=== PATIENT | female | born 1980 | race African-American/Black ===

== ENCOUNTER 2017-11-21 17:54 | Inpatient (IN) | payer MEDICAID, OTHER ==
[~2017-11-21] VITALS: Ht 162.6 cm; Wt 53.5 kg
[2017-11-21] MEDS ORDERED: HEPARIN SQ (18:33)
[2017-11-21] MEDS ORDERED: DOLU1TAB PO (18:33)
[2017-11-21] MEDS ORDERED: NOVOLOGP2 SQ (18:33)
[2017-11-21] MEDS ORDERED: FAMO20TA2 PO (18:33)
[2017-11-21] MEDS ORDERED: TYLE325T PO (18:33)
[2017-11-21] MEDS ORDERED: LANTUS2P SQ (18:33)
[2017-11-21] MEDS ORDERED: ESCI10TA PO (18:33)
[2017-11-21] MEDS ORDERED: EMTR1TAB4 PO (18:33)
[2017-11-21 18:42] VITALS: BP 116/68; PULSE 87; RESP 16; TEMP 98.2; O2SAT 99
--- NOTE | 2017-11-21 22:50 | PD ---
HPI Chief Complaint: Psychiatric Symptoms Time Seen by Provider: 20:58 Travel History International Travel<30 days: No Contact w/Intl Traveler<30days: No Traveled to known affect area: No History of Present Illness HPI Patient is a 37-year-old female presenting to the emergency department for psychiatric evaluation under a Menjivar act. Patient was apparently transferred from [facility]. Apparently patient has auditory hallucinations that command her to commit suicide. She has a history of depression, asthma, type 1 diabetes, HIV. She reports noncompliance with HIV medications, she has not taken them in 4 months. Patient is not forthcoming with any further information at this time. She was resting in bed with a blanket over her head. PFSH Past Medical History Asthma: Yes Autoimmune Disease: Yes (HIV) Depression: Yes Diabetes: Yes Patient Takes Glucophage: No Immune Disorder: Yes Tetanus Vaccination: < 5 Years ?: Not : 2 Para: 2 Dilation and Curettage (D&C): Yes Social History Alcohol Use: No Tobacco Use: Yes Substance Use: No Allergies-Medications (Allergen,Severity, Reaction): Coded Allergies: lorazepam (Verified Allergy, Severe, Hives, 11/21/17) metoclopramide (Verified Allergy, Severe, 11/21/17) ondansetron (Verified Allergy, Severe, Hives, 11/21/17) ITCH, WELTZ Reported Meds & Prescriptions Reported Meds & Active Scripts Active Reported Lantus Inj (Insulin Glargine) 1,000 Unit/10 Ml Vial 15 Units SQ BID Novolog Inj (Insulin Aspart) 1,000 Unit/10 Ml Vial 10 Units SQ TID [Heparin ] 5,000 Units SQ TID Famotidine 20 Mg Tab 20 Mg PO BID Escitalopram (Escitalopram Oxalate) 10 Mg Tab 10 Mg PO DAILY Descovy (Emtricitabine-Tenofovir Alafenamide) 200-25 mg Tab 1 Tab PO DAILY Tivicay (Dolutegravir Sodium) 50 Mg Tab 50 Mg PO DAILY Tylenol (Acetaminophen) 325 Mg Tab 325 Mg PO Q6H PRN Review of Systems Except as stated in HPI: all other systems reviewed are Neg Psychiatric: Positive: Suicidal Ideations, Disorder of Thought, Mood Disorder Physical Exam Narrative GENERAL: Thin, well-developed -Citizen Of [place] female. SKIN: Warm and dry. HEAD: Atraumatic. Normocephalic. EYES: Pupils equal and round. No scleral icterus. No injection or drainage. ENT: No nasal bleeding or discharge. Mucous membranes pink and moist. NECK: Trachea midline. No JVD. CARDIOVASCULAR: Regular rate and rhythm. RESPIRATORY: No accessory muscle use. Clear to auscultation. Breath sounds equal bilaterally. GASTROINTESTINAL: Abdomen soft, non-tender, nondistended. Hepatic and splenic margins not palpable. MUSCULOSKELETAL: Extremities without clubbing, cyanosis, or edema. No obvious deformities. NEUROLOGICAL: Drowsy but arousable. No obvious cranial nerve deficits. Motor grossly within normal limits. Five out of 5 muscle strength in the arms and legs. Normal speech. PSYCHIATRIC: Depressed mood and flat affect Data Data Last Documented VS Vital Signs Date Time Temp Pulse Resp B/P (MAP) Pulse Ox O2 Delivery O2 Flow Rate FiO2 11/21/17 18:42 98.2 87 16 116/68 (84) 99 Orders Orders Complete Blood Count With Diff (11/21/17 22:00) Comprehensive Metabolic Panel (11/21/17 22:00) Thyroid Stimulating Hormone (11/21/17 22:00) Psych Screen (11/21/17 22:00) Blood Glucose (11/21/17 22:03) Labs Laboratory Tests Test 11/21/17 23:25 White Blood Count 2.7 TH/MM3 Red Blood Count 3.39 MIL/MM3 Hemoglobin 9.8 GM/DL Hematocrit 30.6 % Mean Corpuscular Volume 90.4 FL Mean Corpuscular Hemoglobin 29.0 PG Mean Corpuscular Hemoglobin Concent 32.1 % Red Cell Distribution Width 16.1 % Platelet Count 239 TH/MM3 Mean Platelet Volume 9.5 FL Neutrophils (%) (Auto) 64.2 % Lymphocytes (%) (Auto) 19.1 % Monocytes (%) (Auto) 12.8 % Eosinophils (%) (Auto) 3.3 % Basophils (%) (Auto) 0.6 % Neutrophils # (Auto) 1.7 TH/MM3 Lymphocytes # (Auto) 0.5 TH/MM3 Monocytes # (Auto) 0.3 TH/MM3 Eosinophils # (Auto) 0.1 TH/MM3 Basophils # (Auto) 0.0 TH/MM3 CBC Comment AUTO DIFF Blood Urea Nitrogen 27 MG/DL Creatinine 0.91 MG/DL Random Glucose 410 MG/DL Total Protein 8.2 GM/DL Albumin 2.8 GM/DL Calcium Level 8.3 MG/DL Alkaline Phosphatase 124 U/L Aspartate Amino Transf (AST/SGOT) 29 U/L Alanine Aminotransferase (ALT/SGPT) 41 U/L Total Bilirubin 0.1 MG/DL Sodium Level 136 MEQ/L Potassium Level 4.6 MEQ/L Chloride Level 105 MEQ/L Carbon Dioxide Level 24.6 MEQ/L Anion Gap 6 MEQ/L Estimat Glomerular Filtration Rate 84 ML/MIN Thyroid Stimulating Hormone 3rd Gen 2.340 uIU/ML MDM Medical Decision Making Medical Screen Exam Complete: Yes Emergency Medical Condition: Yes Medical Record Reviewed: Yes Interpretation(s) Laboratory Tests Test 11/21/17 23:25 White Blood Count 2.7 TH/MM3 Red Blood Count 3.39 MIL/MM3 Hemoglobin 9.8 GM/DL Hematocrit 30.6 % Mean Corpuscular Volume 90.4 FL Mean Corpuscular Hemoglobin 29.0 PG Mean Corpuscular Hemoglobin Concent 32.1 % Red Cell Distribution Width 16.1 % Platelet Count 239 TH/MM3 Mean Platelet Volume 9.5 FL Neutrophils (%) (Auto) 64.2 % Lymphocytes (%) (Auto) 19.1 % Monocytes (%) (Auto) 12.8 % Eosinophils (%) (Auto) 3.3 % Basophils (%) (Auto) 0.6 % Neutrophils # (Auto) 1.7 TH/MM3 Lymphocytes # (Auto) 0.5 TH/MM3 Monocytes # (Auto) 0.3 TH/MM3 Eosinophils # (Auto) 0.1 TH/MM3 Basophils # (Auto) 0.0 TH/MM3 CBC Comment AUTO DIFF Blood Urea Nitrogen 27 MG/DL Creatinine 0.91 MG/DL Random Glucose 410 MG/DL Total Protein 8.2 GM/DL Albumin 2.8 GM/DL Calcium Level 8.3 MG/DL Alkaline Phosphatase 124 U/L Aspartate Amino Transf (AST/SGOT) 29 U/L Alanine Aminotransferase (ALT/SGPT) 41 U/L Total Bilirubin 0.1 MG/DL Sodium Level 136 MEQ/L Potassium Level 4.6 MEQ/L Chloride Level 105 MEQ/L Carbon Dioxide Level 24.6 MEQ/L Anion Gap 6 MEQ/L Estimat Glomerular Filtration Rate 84 ML/MIN Thyroid Stimulating Hormone 3rd Gen 2.340 uIU/ML Vital Signs Date Time Temp Pulse Resp B/P (MAP) Pulse Ox O2 Delivery O2 Flow Rate FiO2 11/21/17 18:42 98.2 87 16 116/68 (75) 99 Differential Diagnosis Mood disorder versus substance abuse versus suicidal ideations versus psychosis versus other Narrative Course Patient is a 37-year-old female transferred from [facility] to [place] under a Menjivar act for psychiatric evaluation. Apparently patient had been inpatient there for a month. The paperwork she has with her appears to be discharge paperwork. Patient's vital signs are stable, will obtain basic labs. Psych screen is ordered. Patient is resting comfortably at this time. Labs reviewed, CBC with a white blood cell count of 2.7, chemistry with elevated BUN. Glucose is 410. Called [facility] to speak with RN and was notified that patient's mother told her that this is not her baseline that she is normally happy. We have no previous medical history for this patient, she does appear altered/drowsy. Uncertain of her baseline, for this reason patient was moved to a medical bed for more thorough workup given her medical history and noncompliance with HIV medications as well. Discussed with Dr. Blanco. Albertina Xie Nov 21, 2017 22:50
[2017-11-21 23:36] LABS: AUTOMATED NEUTROPHIL # 1.7 TH/MM3 (1.8-7.7); BASOPHIL % 0.6 % (0.0-2.0); EOSINOPHIL # 0.1 TH/MM3 (0-0.4); EOSINOPHIL % 3.3 % (0.0-4.0); HEMATOCRIT 30.6 % (35.0-46.0); HEMOGLOBIN 9.8 GM/DL (11.6-15.3); LYMPH % 19.1 % (9.0-44.0); LYMPHOCYTE # 0.5 TH/MM3 (1.0-4.8); MEAN CELL VOLUME 90.4 FL (80.0-100.0); MEAN CORPUSCULAR HGB CONC 32.1 % (32.0-36.0); MEAN PLATELET VOLUME 9.5 FL (7.0-11.0); MONO % 12.8 % (0.0-8.0); MONOCYTE # 0.3 TH/MM3 (0-0.9); NEUT % 64.2 % (16.0-70.0); PLATELET COUNT 239 TH/MM3 (150-450); RED BLOOD COUNT 3.39 MIL/MM3 (4.00-5.30); RED CELL DISTRIBUTION WIDTH 16.1 % (11.6-17.2); WHITE BLOOD COUNT 2.7 TH/MM3 (4.0-11.0)
[2017-11-22 00:05] LABS: ALBUMIN 2.8 GM/DL (3.4-5.0); ALKALINE PHOSPHATASE 124 U/L (45-117); ALT (GPT) 41 U/L (10-53); AST (GOT) 29 U/L (15-37); BICARBONATE 24.6 MEQ/L (21.0-32.0); BLOOD UREA NITROGEN 27 MG/DL (7-18); CALCIUM 8.3 MG/DL (8.5-10.1); CHLORIDE 105 MEQ/L (98-107); CREATININE 0.91 MG/DL (0.50-1.00); GLOMERULAR FILTRATION RATE 84 ML/MIN (>89); GLUCOSE,RANDOM 410 MG/DL (74-106); SODIUM (NA) 136 MEQ/L (136-145); TOTAL BILIRUBIN ADULT 0.1 MG/DL (0.2-1.0); TOTAL PROTEIN 8.2 GM/DL (6.4-8.2)
[2017-11-22 01:30] VITALS: BP 113/69; PULSE 90; RESP 18; O2SAT 100
[2017-11-22] MEDS ORDERED: diphenhydrAMINE HCL 50 MG/ML VIAL IV PUSH ONE (01:30)
[2017-11-22] MEDS ORDERED: INSULIN HUMAN REGULAR 1,000 UNITS/10 ML VIAL IV PUSH ONE (01:30)
[2017-11-22] MEDS ORDERED: SODIUM CHLOR 0.9% 1000 ML INJ 1,000 ML IV ONE (01:30)
[2017-11-22 06:49] VITALS: BP 124/73; PULSE 100; RESP 16; O2SAT 98
[2017-11-22] MEDS ORDERED: LIDOCAINE VISCOUS 2% SOLN 15 ML UDC SWISH-SWAL PRN (09:30)
[2017-11-22] MEDS ORDERED: FAMOTIDINE 20 MG TAB PO ONE (09:30)
[2017-11-22] MEDS ORDERED: ALUMINUM/MAGNESIUM/SIMETH 30 ML CUP PO ONE (09:30)
[2017-11-22] MEDS ORDERED: LORazepam 2 MG/ML VIAL IM PRN ×2 (11:15)
[2017-11-22] MEDS ORDERED: ACETAMINOPHEN 325 MG TAB PO PRN ×2 (11:15→15:30)
[2017-11-22] MEDS ORDERED: MAGNESIUM HYDROXIDE SUSP 30 ML CUP PO PRN (11:15)
[2017-11-22] MEDS ORDERED: LORazepam 1 MG TAB PO PRN (11:15)
[2017-11-22] MEDS ORDERED: LORazepam 0.5 MG TAB PO PRN (11:15)
--- NOTE | 2017-11-22 11:49 | HHI.HP ---
Provisional Diagnosis Admission Date [place] I. Major depressive disorder, recurrent, with psychotic features vs schizoaffective disorder vs schizophrenia, r/o substance-induced psychosis, r/o medical induce psychosis [place] II. Deferred [place] III. HIV, diabetes Certification of Person's Competence To Provide Express and Informed Consent I have personally examined Ruth Wylie , a [facility] on, Nov 22, 2017 11:19. Express and informed consent means consent voluntarily given in writing, by a competent person, after sufficient explanation and disclosure of the subject matter involved to enable the person to make a knowing and willful decision without any element of force, fraud, deceit, duress, or other form of constraint or coercion. This person is 18 years of age or older, is not now known to be incompetent to consent to treatment with a guardian advocate, and does not have a health care surrogate or proxy currently making medical treatment decisions. I have found this person to be one of the following: [x] Competent to provide express and informed consent, as defined above, for voluntary admission to this facility and is competent to provide express and informed consent for treatment. He/she has the consistent capacity to make well reasoned, willful, and knowing decisions concerning his or her medical or mental health treatment. The person fully and consistently understands the purpose of the admission for examination/placement and is fully capable of personally exercising all rights assured [place] Incompetent to provide express and informed consent to voluntary admission, and this is incompetent to provide express and informed consent to treatment. The person must be transferred to involuntary status and a petition for a guardian advocate filed with the Circuit Court. [] Refusing to provide express and informed consent to voluntary admission but is competent to provide express and informed consent for treatment. The person must be discharged or transferred to involuntary status. Form shall be completed within 24 hours of a person's arrival at the receiving facility and filed in the clinical record of each person: 1. Admitted on a voluntary basis 2. Permitted to provide express and informed consent to his/her own treatment 3. Allowed to transfer from involuntary to voluntary status 4. Prior to permitting a person to consent to his or her own treatment after having been previously found incompetent to consent to treatment. History of Present Illness Capacity: Has Capacity HPI The patient is a 37-year-old woman, domicile in [place] with her mother, mother of 2 kids, unemployed, supported by [facility], with unclear psychiatric history, she says that she has been diagnosed with psychosis in the past, no previous psychiatric hospitalizations, 2 previous suicide attempts, self cutting behavior, she has been in Sero[place] in the past, denies the use of illegal drugs and alcohol, medical history of HIV and diabetes, who presents to the emergency department for psychiatric evaluation under a Menjivar act. Patient was apparently transferred from [facility]. Apparently patient has auditory hallucinations that command her to commit suicide. Chart was reviewed. Case discussed with ER staff. On psychiatric evaluation the patient is poorly cooperative, very tearful, with marked psychomotor retardation, with poor eye contact, staring to the floor. Her speech is hesitant, answers selectively to my questions, she does report that she has been very depressed, that she has lost the reason to live and she has been hearing voices telling her to kill herself. She says that she has been having difficulties coping with her HIV and diabetes to the point that she has stopped taking her medications and she doesn't care anymore. The patient is fully oriented 3, she doesn't have any fluctuation of consciousness, no attention deficit. Even though she has fragmented thought processes, she is logical coherent and relevant, no agitation, no aggressive behavior, no loosening of associations, no tangentiality present. She denies the use of illegal drugs and alcohol. Review of Systems Constitutional: DENIES: Diaphoretic episodes, Fatigue, Fever, Weight gain, Weight loss, Chills, Dizziness, Change in appetite, Night Sweats Endocrine: DENIES: Abnorml menstrual pattern, Heat/cold intolerance, Polydipsia , Polyuria, Polyphagia Eyes: DENIES: Blurred vision, Diplopia, Eye inflammation, Eye pain, Vision loss , Photosensitivity, Double Vision Ears, nose, mouth, throat: DENIES: Tinnitus, Hearing loss, Vertigo, Nasal discharge, Oral lesions, Throat pain, Hoarseness, Ear Pain, Running Nose, Epistaxis, Sinus Pain, Toothache, Odynophagia Respiratory: DENIES: Apneas, Cough, Snoring, Wheezing, Hemoptysis, Sputum production, Shortness of breath Cardiovascular: DENIES: Chest pain, Palpitations, Syncope, Dyspnea on Exertion , PND, Lower Extremity Edema, Orthopnea, Claudication Gastrointestinal: DENIES: Abdominal pain, Black stools, Bloody stools, Constipation, Diarrhea, Nausea, Vomiting, Difficulty Swallowing, Anorexia Genitourinary: DENIES: Abnormal vaginal bleeding, Dysmenorrhea, Dyspareunia, Sexual dysfunction, Urinary frequency, Urinary incontinence, Urgency, Hematuria , Dysuria, Nocturia, Vaginal discharge Musculoskeletal: DENIES: Joint pain, Muscle aches, Stiffness, Joint Swelling, Back pain, Neck pain Integumentary: DENIES: Abnormal pigmentation, Pruritus, Rash, Nail changes, Breast masses, Breast skin changes, Nipple discharge Hematologic/lymphatic: DENIES: Bruising, Lymphadenopathy Immunologic/allergic: DENIES: Eczema, Urticaria Neurologic: DENIES: Abnormal gait, Headache, Localized weakness, Paresthesias, Seizures, Speech Problems, Tremor, Poor Balance Psychiatric: COMPLAINS OF: Depression, Hallucinations, Suicidal Ideation Past Psych History Violence risk - self (6 mos) Elevated Substance Abuse History Drugs/Alcohol past 12 months Patient denies the use of illegal drugs and alcohol Past Family Social History Coded Allergies: lorazepam (Verified Allergy, Severe, Hives, 11/21/17) metoclopramide (Verified Allergy, Severe, 11/21/17) ondansetron (Verified Allergy, Severe, Hives, 11/21/17) ANTHONY SEGOVIA Reported Medications Insulin Glargine Inj (Lantus Inj) 1,000 Unit/10 Ml Vial, 15 UNITS SQ BID for Blood Sugar Management, VIAL 0 Refills 11/21/17 Insulin Aspart Inj (Novolog Inj) 1,000 Unit/10 Ml Vial, 10 UNITS SQ TID for Blood Sugar Management, #10 ML 0 Refills 11/21/17 [Heparin ] No Conflict Check, 5000 UNITS SQ TID 11/21/17 Famotidine (Famotidine) 20 Mg Tab, 20 MG PO BID, #60 TAB 0 Refills 11/21/17 Escitalopram (Escitalopram) 10 Mg Tab, 10 MG PO DAILY, #30 TAB 0 Refills 11/21/17 Emtricitabine-Tenofovir Alafenamide (Descovy) 200-25 mg Tab, 1 TAB PO DAILY for Mgmt Viral Infection, #30 TAB 0 Refills 11/21/17 Dolutegravir (Tivicay) 50 Mg Tab, 50 MG PO DAILY for Mgmt Viral Infection, #30 TAB 0 Refills 11/21/17 Acetaminophen (Tylenol) 325 Mg Tab, 325 MG PO Q6H Y for PAIN SCALE 5 TO 10, TAB 0 Refills 11/21/17 Current Medications Medications (Trade) Dose Ordered Sig/Millie Route Start Time Stop Time Status Last Admin (Xylocaine 2% Viscous) 15 ml Q4H PRN SWISH-SWAL 11/22/17 09:30 Family Psych History She denies family psychiatric history Social History She was born and raised in [place], she lives in [place] with her mother, she is single, she has 2 kids under the care of their father, unemployed , supported by [employer], highest level of education is 11th grade Patient's Strengths (min. 2) Verbal communication Physical Exam No EPS, no tremors, marked psychomotor retardation. Vital Signs Vital Signs Date Time Temp Pulse Resp B/P (MAP) Pulse Ox O2 Delivery O2 Flow Rate FiO2 11/22/17 06:49 100 16 124/73 (90) 98 Room Air 11/21/17 18:42 98.2 I/O 11/22/17 11/22/17 11/23/17 08:00 16:00 00:00 Intake Total 1000 ml Balance 1000 ml Lab Results Test 11/21/17 23:25 White Blood Count 2.7 TH/MM3 Red Blood Count 3.39 MIL/MM3 Hemoglobin 9.8 GM/DL Hematocrit 30.6 % Mean Corpuscular Volume 90.4 FL Mean Corpuscular Hemoglobin 29.0 PG Mean Corpuscular Hemoglobin Concent 32.1 % Red Cell Distribution Width 16.1 % Platelet Count 239 TH/MM3 Mean Platelet Volume 9.5 FL Neutrophils (%) (Auto) 64.2 % Lymphocytes (%) (Auto) 19.1 % Monocytes (%) (Auto) 12.8 % Eosinophils (%) (Auto) 3.3 % Basophils (%) (Auto) 0.6 % Neutrophils # (Auto) 1.7 TH/MM3 Lymphocytes # (Auto) 0.5 TH/MM3 Monocytes # (Auto) 0.3 TH/MM3 Eosinophils # (Auto) 0.1 TH/MM3 Basophils # (Auto) 0.0 TH/MM3 CBC Comment AUTO DIFF Differential Comment AUTO DIFF CONFIRMED Platelet Estimate NORMAL Platelet Morphology Comment NORMAL Blood Urea Nitrogen 27 MG/DL Creatinine 0.91 MG/DL Random Glucose 410 MG/DL Total Protein 8.2 GM/DL Albumin 2.8 GM/DL Calcium Level 8.3 MG/DL Alkaline Phosphatase 124 U/L Aspartate Amino Transf (AST/SGOT) 29 U/L Alanine Aminotransferase (ALT/SGPT) 41 U/L Total Bilirubin 0.1 MG/DL Sodium Level 136 MEQ/L Potassium Level 4.6 MEQ/L Chloride Level 105 MEQ/L Carbon Dioxide Level 24.6 MEQ/L Anion Gap 6 MEQ/L Estimat Glomerular Filtration Rate 84 ML/MIN Thyroid Stimulating Hormone 3rd Gen 2.340 uIU/ML Mental Status Examination Appearance: Dirty, Disheveled Consciousness: Alert Orientation: x4 Motor Activity: Normal gait Speech: Unremarkable Language: Adequate Fund of Knowledge: Adequate Attention and Concentration: Adequate Memory: Unremarkable Mood: Sad Affect: Sad Thought Process & Associations: Intact Thought Content: Appropriate Hallucination Type: Auditory Delusion Type: None Suicidal Ideation: Yes Suicidal Plan: Yes Suicidal Intention: No Homicidal Ideation: No Homicidal Plan: No Homicidal Intention: No Insight: Poor Judgment: Poor Assessment & Plan Problem List: (1) Major depressive disorder, single episode ICD Codes: F32.9 - Major depressive disorder, single episode, unspecified Assessment & Plan: On somatic evaluation today the patient presents with severe symptomatology of depression, she reports anhedonia, lack of motivation, guiltiness, hopelessness, helplessness, she also presents neurovegetative symptoms of depression, such as psychomotor retardation, delay speech, poor appetite, insomnia and lack of energy. He has been hearing voices telling her to kill herself. At this moment the patient represents an increase danger of harm to self and she needs psychiatric hospitalization for stabilization. I will start Zoloft 25 mg daily for depression, Seroquel 25 mg twice a day for psychosis. Patient agrees with voluntary admission. Will consult hospitalist for management of diabetes and HIV. Brief supportive psychotherapy, motivation and psychoeducation provided. Patient will be admitted in the med psych floor. Assessment & Plan Estimated LOS: days Problem Qualifiers (1) Major depressive disorder, single episode: Nick Murray MD Nov 22, 2017 11:49
[2017-11-22] MEDS: QUEtiapine FUMARATE 25 MG TAB PO SCH (12:00)
[2017-11-22 13:36] VITALS: BP 105/58; PULSE 103; RESP 20; O2SAT 96
[2017-11-22] MEDS ORDERED: GLUCAGON 1 MG/ML VIAL OTHER PRN (13:45)
[2017-11-22] MEDS ORDERED: DEXTROSE 50% IN WATER 50 ML VIAL(D50) IV PUSH PRN (13:45)
[2017-11-22] MEDS: INSULIN ASPART SUPPLEMENTAL SCALE SQ SCH ×3 (14:15→21:21)
--- NOTE | 2017-11-22 14:59 | PD.CONS ---
Review of Systems Except as stated in HPI: all other systems reviewed are Neg Past Family Social History Allergies: Coded Allergies: lorazepam (Verified Allergy, Severe, Hives, 11/21/17) metoclopramide (Verified Allergy, Severe, 11/21/17) ondansetron (Verified Allergy, Severe, Hives, 11/21/17) ITCH, ANTHONY Past Medical History asthma hiv dm cervical cancer - s/p cone biopsy / resection- 2014 Past Surgical History cone biopsy d+C Family History mother - dm grandfather - dm cousins aunts- dm dad- dm Social History no smoking no etoh abuse no drugs Physical Exam Vital Signs Vital Signs Date Time Temp Pulse Resp B/P (MAP) Pulse Ox O2 Delivery O2 Flow Rate FiO2 11/22/17 13:36 103 20 105/58 (74) 96 Room Air 11/22/17 06:49 100 16 124/73 (90) 98 Room Air 11/22/17 01:30 90 18 113/69 (84) 100 11/21/17 18:42 98.2 87 16 116/68 (84) 99 Physical Exam GENERAL: This is a well-nourished, well-developed patient, in no apparent distress. SKIN: dry scaly skin with HIV related skin discolorations HEAD: Atraumatic. Normocephalic. No temporal or scalp tenderness. EYES:t. No scleral icterus. No injection or drainage. ENT: Nose without bleeding, purulent drainage or septal hematoma. Airway patent. NECK: Trachea midline. No JVD. Supple, nontender, no meningeal signs. CARDIOVASCULAR: Regular rate and rhythm without murmurs, gallops, or rubs. RESPIRATORY: Clear to auscultation. Breath sounds equal bilaterally. No wheezes , rales, or rhonchi. GASTROINTESTINAL: Abdomen soft, non-tender, nondistended. No guarding MUSCULOSKELETAL: no calf asymmetry or edema, non tender NEUROLOGICAL: Awake and alert. Motor and sensory grossly within normal limits. Normal speech. Laboratory Laboratory Tests Test 11/21/17 23:25 White Blood Count 2.7 Red Blood Count 3.39 Hemoglobin 9.8 Hematocrit 30.6 Mean Corpuscular Volume 90.4 Mean Corpuscular Hemoglobin 29.0 Mean Corpuscular Hemoglobin Concent 32.1 Red Cell Distribution Width 16.1 Platelet Count 239 Mean Platelet Volume 9.5 Neutrophils (%) (Auto) 64.2 Lymphocytes (%) (Auto) 19.1 Monocytes (%) (Auto) 12.8 Eosinophils (%) (Auto) 3.3 Basophils (%) (Auto) 0.6 Neutrophils # (Auto) 1.7 Lymphocytes # (Auto) 0.5 Monocytes # (Auto) 0.3 Eosinophils # (Auto) 0.1 Basophils # (Auto) 0.0 CBC Comment AUTO DIFF Differential Comment AUTO DIFF CONFIRMED Platelet Estimate NORMAL Platelet Morphology Comment NORMAL Blood Urea Nitrogen 27 Creatinine 0.91 Random Glucose 410 Total Protein 8.2 Albumin 2.8 Calcium Level 8.3 Alkaline Phosphatase 124 Aspartate Amino Transf (AST/SGOT) 29 Alanine Aminotransferase (ALT/SGPT) 41 Total Bilirubin 0.1 Sodium Level 136 Potassium Level 4.6 Chloride Level 105 Carbon Dioxide Level 24.6 Anion Gap 6 Estimat Glomerular Filtration Rate 84 Thyroid Stimulating Hormone 3rd Gen 2.340 Result Diagram: 11/21/175 11/21/172324 Assessment and Plan Assessment and Plan HPI: (for some reason, unable to have a section for HIPI on this note in preceding section tabs). 37 yo female, transferred to our facility from [facility] in [place], under inpatient psychiatry service for suicidal ideation/ attempt. Reported she was at [facility] for 1 week initially was managed there for DKA first 2 days in ICU according to luis danielt. Denies any infection or treatment of it. Denies being on antibiotics reports she has not been taking anti retrovrial meds for her HIV at home review of records from [facility] reveals she was being given HAART meds there during hospitalization on ROS, pt denies any fever /nausea/ vomiting/ diarrhea/ black or red stool/ urinary symptoms/ blood in urine Denies any chest pains/ dizziness/ syncopal episodes/ palpitations Was not on any bolanos or central lines while at [facility] Impression: recent admission to [facility] for 1 week, and transferred here to psychiatry for suicidal ideation recent DKA - stated due to meds non compliance HIV on meds- but does not know names- stopped them for past few months - records reveal she was receiving them during her hospitalization in [facility] hypergylcemia Plan: resume her discharge dose of insulin regimen from [facility] I have called [facility] system myself and left message with hospitalist group call center to speak to Dr Srinivas Tong/ discharging physician - so far, did not receive a phone call back from him. would need to check with Dr Tong as to why pt was on HAART meds there if she is non compliant and have not taken it for few months for now, we will hold HAART meds will need to decide on this after discussing with him fingersticks q4hrs stat insluin 25units novolog coverage given x2 in [facility] as her BS is >500. She was also eating. will monitor blood counts no baseline labs here- paperwork from [facility] did not include any labs/ hp or dc summary no evidence of bleeding/ infection- likely baseline labs- will monitor DVT prophyalxis with ambulation Hugo Milan MD Nov 22, 2017 14:59
[2017-11-22] MEDS ORDERED: RESP: ALBUTEROL 2.5 MG/IPRATROPIUM 0.5 MG NEB (PRN) NEB (15:15)
[2017-11-22] MEDS ORDERED: INSULIN ASPART 1,000 UNITS/10 ML VIAL SQ ONE (16:15)
[2017-11-22] MEDS: ALUMINUM/MAGNESIUM/SIMETH 30 ML CUP PO PRN (17:50)
[2017-11-22 18:00] VITALS: BP 111/76; PULSE 123; RESP 17; TEMP 98; O2SAT 95
[2017-11-22] MEDS: INSULIN ASPART 1,000 UNITS/10 ML VIAL SQ SCH (18:18)
[2017-11-22] MEDS: INSULIN DETEMIR 100 UNITS/ML VIAL SQ SCH (21:00)
[2017-11-22] MEDS: FAMOTIDINE 20 MG TAB PO SCH (21:20)
[2017-11-22] MEDS: HEPARIN SODIUM - SQ 10,000 UNITS/ML VIAL SQ SCH (21:21)
[2017-11-22] MEDS: diphenhydrAMINE HCL 25 MG CAP PO PRN (21:27)
[2017-11-23] MEDS: INSULIN ASPART SUPPLEMENTAL SCALE SQ SCH ×6 (02:00→21:19)
[2017-11-23] MEDS: HEPARIN SODIUM - SQ 10,000 UNITS/ML VIAL SQ SCH ×3 (05:20→21:18)
[2017-11-23 06:00] VITALS: BP 141/74; PULSE 100; RESP 18; TEMP 98.1; O2SAT 98
[2017-11-23] MEDS: ALUMINUM/MAGNESIUM/SIMETH 30 ML CUP PO PRN ×2 (06:12→15:48)
[2017-11-23 08:33] LABS: BICARBONATE 22.1 MEQ/L (21.0-32.0); BLOOD UREA NITROGEN 32 MG/DL (7-18); CALCIUM 9.2 MG/DL (8.5-10.1); CHLORIDE 99 MEQ/L (98-107); CHOLESTEROL 147 MG/DL (120-200); CHOLESTEROL/ HDL RATIO 1.48 RATIO; CREATININE 1.14 MG/DL (0.50-1.00); GLOMERULAR FILTRATION RATE 65 ML/MIN (>89); GLUCOSE,RANDOM 362 MG/DL (74-106); LDL CHOLESTEROL 38 MG/DL (0-99); SODIUM (NA) 131 MEQ/L (136-145); TRIGLYCERIDES 48 MG/DL (42-150)
[2017-11-23] MEDS: NICOTINE 21 MG/24 HR PATCH T-DERMAL SCH (09:00)
[2017-11-23] MEDS ORDERED: SERTRALINE HCL 50 MG TAB PO SCH (09:00)
[2017-11-23] MEDS: REMOVE OLD PATCH T-DERMAL SCH (09:00)
[2017-11-23] MEDS: QUEtiapine FUMARATE 25 MG TAB PO SCH ×2 (09:10→12:00)
[2017-11-23] MEDS: diphenhydrAMINE HCL 25 MG CAP PO PRN (09:10)
[2017-11-23] MEDS: ESCITALOPRAM OXALATE 10 MG TAB PO SCH (09:10)
[2017-11-23] MEDS: FAMOTIDINE 20 MG TAB PO SCH ×2 (09:10→21:00)
[2017-11-23] MEDS: INSULIN DETEMIR 100 UNITS/ML VIAL SQ SCH ×2 (09:12→21:00)
[2017-11-23] MEDS: INSULIN ASPART 1,000 UNITS/10 ML VIAL SQ SCH ×3 (09:12→17:54)
[2017-11-23 10:53] LABS: HEMOGLOBIN A1C 12.4 % (4.3-6.0)
[2017-11-23] MEDS ORDERED: SODIUM CHLOR 0.9% 1000 ML INJ 1,000 ML IV ONE (11:00)
[2017-11-23] MEDS: LACTIC ACID (AMMONIUM LACTATE) 12% LOTION 225 GM BTL TOPICAL SCH ×2 (11:15→21:00)
[2017-11-23] MEDS ORDERED: hydrOXYzine HCL 25 MG TAB PO PRN (11:15)
[2017-11-23] MEDS ORDERED: diphenhydrAMINE HCL 50 MG/ML VIAL IV PUSH ONE (11:15)
--- NOTE | 2017-11-23 11:23 | HHI.PR ---
Subjective Remarks Follow-up on patient with type 1 diabetes, HIV, medication noncompliant, suicidal ideation. Patient seen and examined. Patient itching profusely all of her body. States that this always happens when she is out of her HIV medications. She is requesting IV Benadryl. States that oral Benadryl does not work for her. She complains of upset stomach last night with a single episode of nonbloody vomiting. No recurrence today. She is able to tolerate breakfast without any issues. Denies any fever or chills. Denies any chest pain or shortness of breath. Patient follows with ID physician in [place] but is unable to recall their name. States she was off of her HIV medications for many months before being admitted to [facility]. Objective Vitals Vital Signs Date Time Temp Pulse Resp B/P (MAP) Pulse Ox O2 Delivery O2 Flow Rate FiO2 11/23/17 06:00 98.1 100 18 141/74 (96) 98 11/22/17 18:00 98.0 123 17 111/76 (88) 95 11/22/17 16:55 11/22/17 13:36 103 20 105/58 (74) 96 Room Air I/O 11/22/17 11/22/17 11/22/17 11/23/17 11/23/17 11/23/17 07:00 15:00 23:00 07:00 15:00 23:00 Intake Total 1000 ml 1920 ml 240 ml 240 ml Balance 1000 ml 1920 ml 240 ml 240 ml Intake Oral 1920 ml 240 ml 240 ml IV Total 1000 ml # Voids 1 2 Result Diagram: 11/21/17 2325 11/23/17 0735 Objective Remarks GENERAL: This is a well-nourished, well-developed -[place] female patient, in no apparent distress. Awake and alert. Sitting up in bed. Scratching herself all over. SKIN: Dry scaly skin with HIV related skin discolorations HEAD: Atraumatic. Normocephalic. EYES: EOMI. No scleral icterus. No injection or drainage. ENT: Nose without bleeding or purulent drainage. Airway patent. Dry mucus membranes. NECK: Trachea midline. CARDIOVASCULAR: Tachycardia without murmurs, gallops, or rubs. RESPIRATORY: Clear to auscultation. Breath sounds equal bilaterally. No wheezes , rales, or rhonchi. GASTROINTESTINAL: Abdomen soft, non-tender, nondistended. No guarding MUSCULOSKELETAL: She denies without any cyanosis or edema. No obvious deformities. NEUROLOGICAL: Awake and alert. Able to move all extremities spontaneously. Motor and sensory grossly within normal limits. Nonfocal. Normal speech. Medications and IVs Current Medications Medications (Trade) Dose Ordered Sig/Millie Route Start Time Stop Time Status Last Admin (Xylocaine 2% Viscous) 15 ml Q4H PRN SWISH-SWAL 11/22/17 09:30 (Ativan) 1 mg Q6H PRN PO 11/22/17 11:15 UNV (Ativan Inj) 1 mg Q6H PRN IM 11/22/17 11:15 UNV (Ativan) 0.5 mg Q12H PRN PO 11/22/17 11:15 UNV (Ativan Inj) 0.5 mg Q12H PRN IM 11/22/17 11:15 UNV (Tylenol) 650 mg Q4H PRN PO 11/22/17 11:15 (Milk Of Magnesia Liq) 30 ml DAILY PRN PO 11/22/17 11:15 (Mag-Al Plus Susp Liq) 30 ml Q6H PRN PO 11/22/17 11:15 11/23/17 06:12 (Habitrol 21 Mg Patch.24 Hr) 1 patch DAILY T-DERMAL 11/23/17 09:00 (Zoloft) 25 mg DAILY PO 11/23/17 09:00 11/23/17 09:10 (SEROquel) 25 mg BID@09,12 PO 11/22/17 12:00 11/23/17 09:10 Miscellaneous Information 1 DAILY T-DERMAL 11/23/17 09:00 (D50w (Vial) Inj) 50 ml UNSCH PRN IV PUSH 11/22/17 13:45 (Glucagon Inj) 1 mg UNSCH PRN OTHER 11/22/17 13:45 (NovoLOG SUPPLEMENTAL SCALE) 1 Q4H SQ 11/22/17 14:00 11/23/17 06:24 (Levemir Inj) 15 units BID SQ 11/22/17 21:00 11/23/17 09:12 (Benadryl) 25 mg Q6H PRN PO 11/22/17 15:15 11/23/17 09:10 (Duoneb Neb) 1 ampule Q4HR NEB PRN NEB 11/22/17 15:15 (Tylenol) 325 mg Q6H PRN PO 11/22/17 15:30 (Lexapro) 10 mg DAILY PO 11/23/17 09:00 11/23/17 09:10 (Pepcid) 20 mg BID PO 11/22/17 21:00 11/23/17 09:10 (NovoLOG INJ) 10 units TID SQ 11/22/17 18:00 11/23/17 09:12 (Heparin Inj) 5,000 units Q8HR SQ 11/22/17 22:00 A/P Assessment and Plan 37-year-old female with a past medical history significant for type 1 diabetes, depression with suicidal ideation and HIV, HAART medication noncompliance who was recently admitted to [facility] in DKA and psychiatry unit for suicidal ideation. Depression Suicidal ideation - Management per psychiatric service Recent DKA Type I DM Medication noncompliance Hypoglycemic episode - continue on diabetic diet - Continue on Accu-Cheks and insulin sliding scale - Obtain hemoglobin A1c - Blood sugars not well controlled. Received first dose of Levemir 15u this morning. Also on NovoLog 10 units 3 times a day. She is refusing insulin sliding scale. We'll continue to monitor her blood sugar trends and adjust insulin dose as indicated. HIV, medication noncompliance -Patient states she was off of her HAART medications for several months before she was recently admitted to [facility] where her HIV meds were resumed. -obtain CD4 count -Dr. Milan contacted discharging physician from [facility] personally, will follow-up with her results of the conversation. -Continue to hold HAART medications at this time Pruritus -Secondary to above -12.5 mg IV Benadryl 1 dose -Trial of Atarax 25 mg every 6 when necessary itching -Topical Lac-Hydrin twice a day Hyponatremia -Suspect secondary to elevated blood sugars and dehydration. BUN 32. -IV fluid bolus -Improved blood sugar control -Repeat BMP in a.m. RAMO Creatinine 1.14, GFR 65 -Secondary to dehydration -IVF bolus -encourage po intake -Avoid nephrotoxins -monitor renal indices Anemia -Suspect chronic, anemia of chronic disease -No active bleeding -Continue to monitor as indicated Neutropenic -Suspect secondary to medication side effect -Monitor, repeat CBC pending DVT prophylaxis -Patient is ambulatory Ebony Dee Nov 23, 2017 11:23
--- NOTE | 2017-11-23 14:10 | HHI.PYPN ---
Subjective Remarks Patient seen for follow up; chart reviewed. Patient was found lying in hospital bed, cooperative 30 malnourished. Patient states her weight has been "okay" continue to report feeling depressed with intermittent suicidal ideations. Patient denies any auditory hallucinations today although recently with command auditory hallucinations to kill herself. Patient states that she has stopped her medications recently in attempt to hurt herself as well as cut herself on her left thigh which was superficial in nature but with intent to harm herself. Review of Systems Except as stated in HPI: all other systems reviewed are Neg Mental Status Examination Appearance: Dirty, Disheveled Consciousness: Alert Orientation: x4 Motor Activity: Normal gait Speech: Unremarkable Language: Adequate Fund of Knowledge: Adequate Attention and Concentration: Adequate Memory: Unremarkable Mood: Sad Affect: Sad Thought Process & Associations: Intact Thought Content: Appropriate Hallucination Type: Auditory (command) Delusion Type: None Suicidal Ideation: Yes Suicidal Plan: Yes Suicidal Intention: No Homicidal Ideation: No Homicidal Plan: No Homicidal Intention: No Insight: Poor Judgment: Poor Results Labs labs reviewed. Test 11/23/17 07:35 Blood Urea Nitrogen 32 MG/DL Creatinine 1.14 MG/DL Random Glucose 362 MG/DL Calcium Level 9.2 MG/DL Sodium Level 131 MEQ/L Potassium Level 4.9 MEQ/L Chloride Level 99 MEQ/L Carbon Dioxide Level 22.1 MEQ/L Anion Gap 10 MEQ/L Estimat Glomerular Filtration Rate 65 ML/MIN Hemoglobin A1c 12.4 % Triglycerides Level 48 MG/DL Cholesterol Level 147 MG/DL LDL Cholesterol 38 MG/DL HDL Cholesterol 99.0 MG/DL Cholesterol/HDL Ratio 1.48 RATIO Vitals/IOs Vital Signs Date Time Temp Pulse Resp B/P (MAP) Pulse Ox O2 Delivery O2 Flow Rate FiO2 11/23/17 06:00 98.1 100 18 141/74 (96) 98 11/22/17 13:36 Room Air Intake and Output 11/23/17 11/23/17 11/24/17 08:00 16:00 00:00 Intake Total 240 ml 720 ml Balance 240 ml 720 ml Assessment & Plan Problem List: (1) Major depressive disorder, single episode ICD Codes: F32.9 - Major depressive disorder, single episode, unspecified Assessment & Plan Patient this time continues reportedly depressed along denying any current auditory hallucinations patient continue with suicide ideations and thoughts of self-harm. We will continue current treatment. We will continue monitoring mood and behavior. We will continue recognition as per prior medical team. Discharge planning in progress. Justification for Cont. Inpt. At risk for further decompensation if at lower level of care Discharge Planning To be determined Problem Qualifiers (1) Major depressive disorder, single episode: Adarsh Gallardo MD Nov 23, 2017 14:10
[2017-11-23 15:54] LABS: AUTOMATED NEUTROPHIL # 2.1 TH/MM3 (1.8-7.7); BASOPHIL % 0.9 % (0.0-2.0); EOSINOPHIL # 0.1 TH/MM3 (0-0.4); EOSINOPHIL % 3.6 % (0.0-4.0); HEMATOCRIT 27.1 % (35.0-46.0); HEMOGLOBIN 8.8 GM/DL (11.6-15.3); LYMPH % 16.1 % (9.0-44.0); LYMPHOCYTE # 0.5 TH/MM3 (1.0-4.8); MEAN CELL VOLUME 88.3 FL (80.0-100.0); MEAN CORPUSCULAR HEMOGLOBIN 28.6 PG (27.0-34.0); MEAN CORPUSCULAR HGB CONC 32.4 % (32.0-36.0); MEAN PLATELET VOLUME 10.5 FL (7.0-11.0); MONO % 14.1 % (0.0-8.0); MONOCYTE # 0.5 TH/MM3 (0-0.9); NEUT % 65.3 % (16.0-70.0); PLATELET COUNT 261 TH/MM3 (150-450); RED BLOOD COUNT 3.07 MIL/MM3 (4.00-5.30); WHITE BLOOD COUNT 3.2 TH/MM3 (4.0-11.0)
[2017-11-23 18:45] VITALS: BP 108/56; PULSE 110; RESP 18; TEMP 98.5
[2017-11-24] MEDS: INSULIN ASPART SUPPLEMENTAL SCALE SQ SCH ×5 (02:00→21:19)
[2017-11-24 06:00] VITALS: BP 134/68; PULSE 95; RESP 18; TEMP 97.6; O2SAT 99
[2017-11-24] MEDS: HEPARIN SODIUM - SQ 10,000 UNITS/ML VIAL SQ SCH ×3 (06:00→21:18)
--- NOTE | 2017-11-24 08:00 | HHI.PYPN ---
Subjective Remarks Patient is here for follow, chart reviewed. Discussion nursing staff reported the patient continues to report having pruritus of the skin but was given Benadryl yesterday. Patient was found lying hospital bed noted, cooperative. Patient states that she is sleeping well, eating and drinking well, that her mood today is "okay", continue to report feeling depressed along with intermittent command auditory hallucinations to kill herself but denying any suicide ideations today. Patient states that her appetite is improving, no difficulty eating and drinking or bowel movement. Review of Systems Except as stated in HPI: all other systems reviewed are Neg Mental Status Examination Appearance: Dirty, Disheveled Consciousness: Alert Orientation: x4 Motor Activity: Normal gait Speech: Unremarkable Language: Adequate Fund of Knowledge: Adequate Attention and Concentration: Adequate Memory: Unremarkable Mood: Sad Affect: Sad Thought Process & Associations: Other (Some poverty of thought) Thought Content: Appropriate Hallucination Type: Auditory (command) Delusion Type: None Suicidal Ideation: Yes (Denies today) Suicidal Plan: No Suicidal Intention: No Homicidal Ideation: No Homicidal Plan: No Homicidal Intention: No Insight: Poor Judgment: Poor Results Labs Labs reviewed Test 11/23/17 14:23 White Blood Count 3.2 TH/MM3 Red Blood Count 3.07 MIL/MM3 Hemoglobin 8.8 GM/DL Hematocrit 27.1 % Mean Corpuscular Volume 88.3 FL Mean Corpuscular Hemoglobin 28.6 PG Mean Corpuscular Hemoglobin Concent 32.4 % Red Cell Distribution Width 16.0 % Platelet Count 261 TH/MM3 Mean Platelet Volume 10.5 FL Neutrophils (%) (Auto) 65.3 % Lymphocytes (%) (Auto) 16.1 % Monocytes (%) (Auto) 14.1 % Eosinophils (%) (Auto) 3.6 % Basophils (%) (Auto) 0.9 % Neutrophils # (Auto) 2.1 TH/MM3 Lymphocytes # (Auto) 0.5 TH/MM3 Monocytes # (Auto) 0.5 TH/MM3 Eosinophils # (Auto) 0.1 TH/MM3 Basophils # (Auto) 0.0 TH/MM3 CBC Comment AUTO DIFF Differential Comment AUTO DIFF CONFIRMED Vitals/IOs Vital Signs Date Time Temp Pulse Resp B/P (MAP) Pulse Ox O2 Delivery O2 Flow Rate FiO2 11/24/17 06:00 97.6 95 18 134/68 (90) 99 11/22/17 13:36 Room Air Intake and Output 11/24/17 11/24/17 11/25/17 08:00 16:00 00:00 Intake Total 0 ml Balance 0 ml Assessment & Plan Problem List: (1) Major depressive disorder, single episode ICD Codes: F32.9 - Major depressive disorder, single episode, unspecified Assessment & Plan Patient continues report feeling depressed with continued auditory hallucination to kill herself but denied any suicide ideations today. We will discontinue sertraline, continue citalopram 10 mg p.o. daily and increase quetiapine to 50 mg p.o. twice daily for psychosis. Continue to monitor mood and behavior. Continue recommendations as per prior medical team. Discharge planning in progress. Justification for Cont. Inpt. At risk for decompensation at lower level of care Discharge Planning To be determined Problem Qualifiers (1) Major depressive disorder, single episode: Adarsh Gallardo MD Nov 24, 2017 08:00
[2017-11-24] MEDS: NICOTINE 21 MG/24 HR PATCH T-DERMAL SCH (09:00)
[2017-11-24] MEDS: REMOVE OLD PATCH T-DERMAL SCH (09:00)
[2017-11-24] MEDS: FAMOTIDINE 20 MG TAB PO SCH ×2 (09:34→21:19)
[2017-11-24] MEDS: QUEtiapine FUMARATE 25 MG TAB PO SCH ×2 (09:34→12:30)
[2017-11-24] MEDS: ESCITALOPRAM OXALATE 10 MG TAB PO SCH (09:34)
[2017-11-24] MEDS: LACTIC ACID (AMMONIUM LACTATE) 12% LOTION 225 GM BTL TOPICAL SCH ×2 (09:35→21:00)
[2017-11-24] MEDS: INSULIN DETEMIR 100 UNITS/ML VIAL SQ SCH (09:37)
[2017-11-24] MEDS: INSULIN ASPART 1,000 UNITS/10 ML VIAL SQ SCH ×3 (09:38→16:41)
--- NOTE | 2017-11-24 13:47 | HHI.PR ---
Subjective Remarks Follow up on patient with type 1 DM, HIV, medication noncompliant, suicidal ideation. Patient seen and examined. Patient is asleep upon entering the room but easily awakens to voice. Patient complained of increased redness and itching in the right eye. She continues to complain of total body itching and is requesting IV Benadryl. Denies any relief with Atarax. She denies any fever or chills. Denies any chest pain or shortness of breath. Denies any nausea, vomiting or abdominal pain. Objective Vitals Vital Signs Date Time Temp Pulse Resp B/P (MAP) Pulse Ox O2 Delivery O2 Flow Rate FiO2 11/24/17 06:00 97.6 95 18 134/68 (90) 99 11/23/17 18:45 98.5 110 18 108/56 (73) I/O 11/23/17 11/23/17 11/23/17 11/24/17 11/24/17 11/24/17 07:00 15:00 23:00 07:00 15:00 23:00 Intake Total 240 ml 720 ml 1800 ml 0 ml 840 ml Balance 240 ml 720 ml 1800 ml 0 ml 840 ml Intake Oral 240 ml 720 ml 1800 ml 0 ml 840 ml # Voids 2 1 2 Result Diagram: 11/23/17 1423 11/23/17 0735 Objective Remarks GENERAL: This is a well-nourished, well-developed -Citizen Of [place] female patient, in no apparent distress. Awake and alert. SKIN: Dry scaly skin with HIV related skin discolorations HEAD: Atraumatic. Normocephalic. EYES: EOMI. and junk to the erythematous the right eye with increased tearing. ENT: Nose without bleeding or purulent drainage. Airway patent. MMM. NECK: Trachea midline. CARDIOVASCULAR: Tachycardia without murmurs, gallops, or rubs. RESPIRATORY: Clear to auscultation. Breath sounds equal bilaterally. No wheezes , rales, or rhonchi. GASTROINTESTINAL: Abdomen soft, non-tender, nondistended. No guarding MUSCULOSKELETAL: She denies without any cyanosis or edema. No obvious deformities. NEUROLOGICAL: Awake and alert. Able to move all extremities spontaneously. Motor and sensory grossly within normal limits. Nonfocal. Normal speech. Medications and IVs Current Medications Medications (Trade) Dose Ordered Sig/Millie Route Start Time Stop Time Status Last Admin (Xylocaine 2% Viscous) 15 ml Q4H PRN SWISH-SWAL 11/22/17 09:30 (Ativan) 1 mg Q6H PRN PO 11/22/17 11:15 UNV (Ativan Inj) 1 mg Q6H PRN IM 11/22/17 11:15 UNV (Ativan) 0.5 mg Q12H PRN PO 11/22/17 11:15 UNV (Ativan Inj) 0.5 mg Q12H PRN IM 11/22/17 11:15 UNV (Tylenol) 650 mg Q4H PRN PO 11/22/17 11:15 (Milk Of Magnesia Liq) 30 ml DAILY PRN PO 11/22/17 11:15 (Mag-Al Plus Susp Liq) 30 ml Q6H PRN PO 11/22/17 11:15 11/23/17 15:48 (Habitrol 21 Mg Patch.24 Hr) 1 patch DAILY T-DERMAL 11/23/17 09:00 Miscellaneous Information 1 DAILY T-DERMAL 11/23/17 09:00 (D50w (Vial) Inj) 50 ml UNSCH PRN IV PUSH 11/22/17 13:45 (Glucagon Inj) 1 mg UNSCH PRN OTHER 11/22/17 13:45 (NovoLOG SUPPLEMENTAL SCALE) 1 Q4H SQ 11/22/17 14:00 11/24/17 09:40 (Levemir Inj) 15 units BID SQ 11/22/17 21:00 11/24/17 09:37 (Duoneb Neb) 1 ampule Q4HR NEB PRN NEB 11/22/17 15:15 (Tylenol) 325 mg Q6H PRN PO 11/22/17 15:30 (Lexapro) 10 mg DAILY PO 11/23/17 09:00 11/24/17 09:34 (Pepcid) 20 mg BID PO 11/22/17 21:00 11/24/17 09:34 (NovoLOG INJ) 10 units TID SQ 11/22/17 18:00 11/24/17 09:38 (Heparin Inj) 5,000 units Q8HR SQ 11/22/17 22:00 11/23/17 14:00 (Atarax) 25 mg Q6H PRN PO 11/23/17 11:15 11/23/17 21:23 (Lac-Hydrin 12% Lotion) 1 applic BID TOPICAL 11/23/17 11:15 11/24/17 09:35 (SEROquel) 50 mg BID@09,12 PO 11/24/17 09:00 11/24/17 09:34 A/P Assessment and Plan 37-year-old female with a past medical history significant for type 1 diabetes, depression with suicidal ideation and HIV, HAART medication noncompliance who was recently admitted to [facility] in DKA and psychiatry unit for suicidal ideation. Depression Suicidal ideation -Management per psychiatric service Recent DKA Type I DM, poorly controlled Medication noncompliance Hypoglycemic episode -continue on diabetic diet -HgbA1c 12.4 -Continue on Accu-Cheks and insulin sliding scale -brittle diabetic with blood sugar as low as 38 to as high as 471. Changed to low-dose insulin sliding scale. Continue with Levemir 15 units in the morning. Decrease evening dose of Levemir to 5 units daily at bedtime. Decrease preprandial insulin to 6 units 3 times a day. Continue to monitor blood sugars and adjust insulin regimen as indicated. HIV, medication noncompliance -Patient states she was off of her HAART medications for several months before she was recently admitted to [facility] where her HIV meds were resumed. -obtain CD4 count - pending -Dr. Milan contacted discharging physician from [facility] personally, will follow-up with her results of the conversation. -Continue to hold HAART medications at this time Pruritus -Secondary to above -12.5 mg IV Benadryl 1 dose - not given -Denies any relief with Atarax. Increase to 50mg q6h prn. -Topical Lac-Hydrin twice a day Conjunctivitis -Cipro ophthalmic gtts in both eyes QID x 7 days Hyponatremia -Suspect secondary to elevated blood sugars and dehydration. BUN 32. -IV fluid bolus -Improved blood sugar control -Repeat BMP in a.m. - pending RAMO Creatinine 1.14, GFR 65 -Secondary to dehydration -IVF bolus given -encourage po intake -Avoid nephrotoxins -monitor renal indices Anemia -Suspect chronic, anemia of chronic disease -slight trend downward, repeat lab pending for today -No active bleeding -Continue to monitor as indicated Neutropenic -Suspect secondary to medication side effect -Monitor, repeat CBC pending DVT prophylaxis -Patient is ambulatory Ebony Dee Nov 24, 2017 13:47
[2017-11-24] MEDS ORDERED: DEXTROSE 50% IN WATER 50 ML VIAL(D50) IV PUSH PRN (15:00)
[2017-11-24] MEDS ORDERED: GLUCAGON 1 MG/ML VIAL OTHER PRN (15:00)
[2017-11-24] MEDS: ALUMINUM/MAGNESIUM/SIMETH 30 ML CUP PO PRN (17:33)
--- NOTE | 2017-11-24 17:46 | EKG ---
Date Performed: 11/24/2017 Time Performed: 09:30:35 PTAGE: 37 years EKG: Sinus rhythm POSSIBLE LEFT ATRIAL ENLARGEMENT BORDERLINE ECG NO PREVIOUS TRACING DOCTOR: Eleanor Rios Interpretating Date/Time 11/24/2017 17:44:56
[2017-11-24 18:05] VITALS: BP 125/80; PULSE 109; RESP 17; TEMP 98.8; O2SAT 97
[2017-11-24] MEDS: CIPROFLOXACIN OPTH 0.3% EACH EYE SCH ×2 (18:05→21:00)
[2017-11-24] MEDS ORDERED: INSULIN DETEMIR 100 UNITS/ML VIAL SQ SCH (21:00)
[2017-11-25] MEDS: HEPARIN SODIUM - SQ 10,000 UNITS/ML VIAL SQ SCH ×3 (05:13→19:39)
[2017-11-25 05:53] VITALS: BP 136/80; PULSE 100; RESP 17; TEMP 98.2; O2SAT 97
[2017-11-25] MEDS: hydrOXYzine HCL 25 MG TAB PO PRN ×2 (06:03→12:17)
[2017-11-25 08:20] LABS: AUTOMATED NEUTROPHIL # 1.9 TH/MM3 (1.8-7.7); BASOPHIL % 0.4 % (0.0-2.0); EOSINOPHIL # 0.1 TH/MM3 (0-0.4); EOSINOPHIL % 4.2 % (0.0-4.0); HEMATOCRIT 30.1 % (35.0-46.0); HEMOGLOBIN 9.7 GM/DL (11.6-15.3); LYMPH % 21.1 % (9.0-44.0); LYMPHOCYTE # 0.7 TH/MM3 (1.0-4.8); MEAN CELL VOLUME 88.8 FL (80.0-100.0); MEAN CORPUSCULAR HEMOGLOBIN 28.6 PG (27.0-34.0); MEAN CORPUSCULAR HGB CONC 32.2 % (32.0-36.0); MEAN PLATELET VOLUME 10.6 FL (7.0-11.0); MONO % 13.4 % (0.0-8.0); MONOCYTE # 0.4 TH/MM3 (0-0.9); NEUT % 60.9 % (16.0-70.0); PLATELET COUNT 230 TH/MM3 (150-450); RED BLOOD COUNT 3.39 MIL/MM3 (4.00-5.30); WHITE BLOOD COUNT 3.2 TH/MM3 (4.0-11.0)
[2017-11-25] MEDS: INSULIN ASPART SUPPLEMENTAL SCALE SQ SCH ×4 (08:23→20:24)
[2017-11-25] MEDS: INSULIN ASPART 1,000 UNITS/10 ML VIAL SQ SCH ×2 (08:23→11:52)
[2017-11-25] MEDS: ESCITALOPRAM OXALATE 10 MG TAB PO SCH (08:24)
[2017-11-25] MEDS: CIPROFLOXACIN OPTH 0.3% EACH EYE SCH ×5 (08:24→19:38)
[2017-11-25] MEDS: QUEtiapine FUMARATE 25 MG TAB PO SCH ×2 (08:25→11:51)
[2017-11-25] MEDS: FAMOTIDINE 20 MG TAB PO SCH ×2 (08:25→20:25)
[2017-11-25] MEDS: LACTIC ACID (AMMONIUM LACTATE) 12% LOTION 225 GM BTL TOPICAL SCH ×2 (08:30→19:39)
[2017-11-25] MEDS: NICOTINE 21 MG/24 HR PATCH T-DERMAL SCH (08:30)
[2017-11-25 08:50] LABS: CALCIUM 8.4 MG/DL (8.5-10.1); CREATININE 0.86 MG/DL (0.50-1.00)
[2017-11-25] MEDS ORDERED: INSULIN DETEMIR 100 UNITS/ML VIAL SQ SCH ×2 (09:00→21:00)
[2017-11-25] MEDS: REMOVE OLD PATCH T-DERMAL SCH (09:00)
[2017-11-25 09:17] LABS: OVALOCYTES 1+ (NORMAL)
--- NOTE | 2017-11-25 12:06 | HHI.PR ---
Subjective Remarks Follow up on patient with type 1 DM, HIV, medication noncompliant, suicidal ideation. Patient seen and examined. Blood sugars poorly controlled. Over 300 this am. Discussed with Adry HOGUE, patient given lots of snacks last night. Patient report improvement in her eye discomfort. She denies any fever or chills. Denies any chest pain or dyspnea. No nausea, vomiting or abdominal pain. Objective Vitals Vital Signs Date Time Temp Pulse Resp B/P (MAP) Pulse Ox O2 Delivery O2 Flow Rate FiO2 11/25/17 05:53 98.2 100 17 136/80 (98) 97 11/24/17 18:05 98.8 109 17 125/80 (95) 97 I/O 11/24/17 11/24/17 11/24/17 11/25/17 11/25/17 11/25/17 07:00 15:00 23:00 07:00 15:00 23:00 Intake Total 0 ml 840 ml 2640 ml 0 ml 480 ml Balance 0 ml 840 ml 2640 ml 0 ml 480 ml Intake Oral 0 ml 840 ml 2640 ml 0 ml 480 ml # Voids 2 1 1 Result Diagram: 11/25/17 0711 11/25/17 0711 Objective Remarks GENERAL: This is a well-nourished, well-developed -[place] female patient, in no apparent distress. Awake and alert. Lying in hospital bed. SKIN: Dry scaly skin with HIV related skin discolorations HEAD: Atraumatic. Normocephalic. EYES: EOMI. Right eye conjunctivitis improving. ENT: Nose without bleeding or purulent drainage. Airway patent. MMM. NECK: Trachea midline. CARDIOVASCULAR: Tachycardia without murmurs, gallops, or rubs. RESPIRATORY: Clear to auscultation. Breath sounds equal bilaterally. No wheezes , rales, or rhonchi. GASTROINTESTINAL: Abdomen soft, non-tender, nondistended. No guarding MUSCULOSKELETAL: She denies without any cyanosis or edema. No obvious deformities. NEUROLOGICAL: Awake and alert. Able to move all extremities spontaneously. Motor and sensory grossly within normal limits. Nonfocal. Normal speech. Medications and IVs Current Medications Medications (Trade) Dose Ordered Sig/Millie Route Start Time Stop Time Status Last Admin (Xylocaine 2% Viscous) 15 ml Q4H PRN SWISH-SWAL 11/22/17 09:30 (Tylenol) 650 mg Q4H PRN PO 11/22/17 11:15 (Milk Of Magnesia Liq) 30 ml DAILY PRN PO 11/22/17 11:15 (Mag-Al Plus Susp Liq) 30 ml Q6H PRN PO 11/22/17 11:15 11/24/17 17:33 (Habitrol 21 Mg Patch.24 Hr) 1 patch DAILY T-DERMAL 11/23/17 09:00 Miscellaneous Information 1 DAILY T-DERMAL 11/23/17 09:00 (Duoneb Neb) 1 ampule Q4HR NEB PRN NEB 11/22/17 15:15 (Tylenol) 325 mg Q6H PRN PO 11/22/17 15:30 (Lexapro) 10 mg DAILY PO 11/23/17 09:00 11/25/17 08:24 (Pepcid) 20 mg BID PO 11/22/17 21:00 11/25/17 08:25 (Heparin Inj) 5,000 units Q8HR SQ 11/22/17 22:00 11/23/17 14:00 (Lac-Hydrin 12% Lotion) 1 applic BID TOPICAL 11/23/17 11:15 11/25/17 08:30 (SEROquel) 50 mg BID@09,12 PO 11/24/17 09:00 11/25/17 11:51 (Atarax) 50 mg Q6H PRN PO 11/24/17 17:15 11/25/17 06:03 (NovoLOG SUPPLEMENTAL SCALE) 1 ACHS SLIDING SCALE SQ 11/24/17 17:00 11/25/17 11:52 Non-Formulary Medication NF:CIPROFLOXACIN OPTH MALENA 0.3%--1 D... QID EACH EYE 11/24/17 16:15 12/01/17 17:59 11/24/17 18:05 (D50w (Vial) Inj) 50 ml UNSCH PRN IV PUSH 11/24/17 15:00 (Glucagon Inj) 1 mg UNSCH PRN OTHER 11/24/17 15:00 (NovoLOG INJ) 6 units TID SQ 11/24/17 18:00 11/25/17 11:52 (Levemir Inj) 15 units DAILY SQ 3/3/18 09:00 11/25/17 08:23 (Levemir Inj) 5 units HS SQ 11/24/17 21:00 11/24/17 21:20 A/P Assessment and Plan 37-year-old female with a past medical history significant for type 1 diabetes, depression with suicidal ideation and HIV, HAART medication noncompliance who was recently admitted to [facility] in DKA and psychiatry unit for suicidal ideation. Depression Suicidal ideation -Management per psychiatric service Recent DKA Type I DM, poorly controlled Medication noncompliance Hypoglycemic episode -continue on diabetic diet -HgbA1c 12.4 -Continue on Accu-Cheks and insulin sliding scale -brittle diabetic with blood sugar as low as 38 to as high as 471. Changed to low-dose insulin sliding scale. BS 331 this am. Continue with Levemir 15 units in the morning. Increase evening dose of Levemir to 10 units. Increase preprandial insulin to 8 units 3 times a day. Continue to monitor blood sugars and adjust insulin regimen as indicated. HIV, medication noncompliance -Patient states she was off of her HAART medications for several months before she was recently admitted to [facility] where her HIV meds were resumed. -obtain CD4 count - pending -Continue to hold HAART medications at this time Pruritus -Secondary to above, improved -Continue Atarax 50mg q6h prn. -Topical Lac-Hydrin twice a day Conjunctivitis, improving -Cipro ophthalmic gtts in both eyes QID x 7 days Hyponatremia, improved Sodium from 131 to 135 -Suspect secondary to elevated blood sugars and dehydration. BUN 32 --> 21. -IV fluid bolus given -Improved blood sugar control -continue to encourage po fluid intake RAMO, resolved Creatinine 1.14, GFR 65 -Secondary to dehydration -IVF bolus given -encourage po intake -Avoid nephrotoxins -monitor renal indices Anemia -Suspect chronic, anemia of chronic disease -hemoglobin appears stable -No active bleeding -Continue to monitor as indicated Neutropenic -Suspect secondary to medication side effect -stable DVT prophylaxis -Patient is ambulatory Patient may be moved to regular psychiatric unit from hospitalist standpoint. Ebony Dee Nov 25, 2017 12:06
[2017-11-25] MEDS: ALUMINUM/MAGNESIUM/SIMETH 30 ML CUP PO PRN (12:17)
[2017-11-25] MEDS ORDERED: INSULIN ASPART 1,000 UNITS/10 ML VIAL SQ SCH (13:00)
--- NOTE | 2017-11-25 14:56 | HHI.PYPN ---
Subjective Remarks The patient was seen today for psychiatric reevaluation along with nurse in charge Adry. The patient is calm, cooperative, a little bit irritable. She reports that she continues to be depressed, she says that her depression had improved just a little bit. From 1 of 10, is now 3 of 10. She does report improved sleep and appetite, she also says that she has the motivation to get better, to take a medication for HAV and diabetes. The patient is fully oriented, compliant with medications,and medical side effects. Mental Status Examination Appearance: Dirty, Disheveled Consciousness: Alert Orientation: x4 Motor Activity: Normal gait Speech: Unremarkable Language: Adequate Fund of Knowledge: Adequate Attention and Concentration: Adequate Memory: Unremarkable Mood: Sad Affect: Sad Thought Process & Associations: Other (Some poverty of thought) Thought Content: Appropriate Hallucination Type: Auditory (command) Delusion Type: None Suicidal Ideation: Yes (Denies today) Suicidal Plan: No Suicidal Intention: No Homicidal Ideation: No Homicidal Plan: No Homicidal Intention: No Insight: Poor Judgment: Poor Results Labs Test 11/25/17 07:11 White Blood Count 3.2 TH/MM3 Red Blood Count 3.39 MIL/MM3 Hemoglobin 9.7 GM/DL Hematocrit 30.1 % Mean Corpuscular Volume 88.8 FL Mean Corpuscular Hemoglobin 28.6 PG Mean Corpuscular Hemoglobin Concent 32.2 % Red Cell Distribution Width 16.0 % Platelet Count 230 TH/MM3 Mean Platelet Volume 10.6 FL Neutrophils (%) (Auto) 60.9 % Lymphocytes (%) (Auto) 21.1 % Monocytes (%) (Auto) 13.4 % Eosinophils (%) (Auto) 4.2 % Basophils (%) (Auto) 0.4 % Neutrophils # (Auto) 1.9 TH/MM3 Lymphocytes # (Auto) 0.7 TH/MM3 Monocytes # (Auto) 0.4 TH/MM3 Eosinophils # (Auto) 0.1 TH/MM3 Basophils # (Auto) 0.0 TH/MM3 CBC Comment AUTO DIFF Differential Comment AUTO DIFF CONFIRMED Platelet Estimate NORMAL Platelet Morphology Comment ENLARGED Ovalocytes 1+ Blood Urea Nitrogen 21 MG/DL Creatinine 0.86 MG/DL Random Glucose 305 MG/DL Calcium Level 8.4 MG/DL Sodium Level 135 MEQ/L Potassium Level 5.0 MEQ/L Chloride Level 102 MEQ/L Carbon Dioxide Level 28.0 MEQ/L Anion Gap 5 MEQ/L Estimat Glomerular Filtration Rate 90 ML/MIN Vitals/IOs Vital Signs Date Time Temp Pulse Resp B/P (MAP) Pulse Ox O2 Delivery O2 Flow Rate FiO2 11/25/17 05:53 98.2 100 17 136/80 (98) 97 11/22/17 13:36 Room Air Intake and Output 11/25/17 11/25/17 11/26/17 08:00 16:00 00:00 Intake Total 240 ml 240 ml Balance 240 ml 240 ml Assessment & Plan Problem List: (1) Major depressive disorder, single episode ICD Codes: F32.9 - Major depressive disorder, single episode, unspecified Assessment & Plan: Patient continues to show symptoms of depression. Ambivalent suicidal ideation. We will increase Lexapro to 20 mg daily. Assessment & Plan Estimated LOS: days Justification for Cont. Inpt. Patient is to continue psychiatric hospitalization for stabilization. Problem Qualifiers (1) Major depressive disorder, single episode: Nick Murray MD Nov 25, 2017 14:56
[2017-11-25 18:00] VITALS: BP 112/56; PULSE 106; RESP 16; TEMP 99.1; O2SAT 97
[2017-11-25] MEDS ORDERED: diphenhydrAMINE HCL 50 MG CAP PO ONE (18:30)
[2017-11-26] MEDS: ALUMINUM/MAGNESIUM/SIMETH 30 ML CUP PO PRN ×2 (02:15→20:13)
[2017-11-26] MEDS: hydrOXYzine HCL 25 MG TAB PO PRN ×3 (03:00→20:27)
[2017-11-26 03:51] LABS: CD3-/CD16+CD56+ PERCENT 39 % (4-25); CD3-CD16+CD56+ (ABSOLUTE) 208 (70-760); LYMPHOCYTES, ABSOLUTE 530 (850-3900)
[2017-11-26] MEDS: HEPARIN SODIUM - SQ 10,000 UNITS/ML VIAL SQ SCH ×3 (04:43→20:28)
[2017-11-26 05:56] VITALS: BP 111/59; PULSE 88; RESP 18; TEMP 98.4; O2SAT 98
[2017-11-26] MEDS: CIPROFLOXACIN OPTH 0.3% EACH EYE SCH ×4 (08:53→20:11)
[2017-11-26] MEDS: INSULIN ASPART SUPPLEMENTAL SCALE SQ SCH ×4 (08:53→20:16)
[2017-11-26] MEDS: QUEtiapine FUMARATE 25 MG TAB PO SCH ×2 (08:54→13:04)
[2017-11-26] MEDS: FAMOTIDINE 20 MG TAB PO SCH ×2 (08:54→20:13)
[2017-11-26] MEDS: ESCITALOPRAM OXALATE 10 MG TAB PO SCH (08:54)
[2017-11-26] MEDS: REMOVE OLD PATCH T-DERMAL SCH (08:54)
[2017-11-26] MEDS: LACTIC ACID (AMMONIUM LACTATE) 12% LOTION 225 GM BTL TOPICAL SCH ×2 (08:54→20:28)
[2017-11-26] MEDS: NICOTINE 21 MG/24 HR PATCH T-DERMAL SCH (08:54)
--- NOTE | 2017-11-26 09:29 | HHI.PYPN ---
Subjective Remarks Patient was seen today briefly for psychiatric reevaluation. Discussed was discussed with nursing charge. The patient reports today improved mood, even though she still poses suicidal ideation without specific plan. The patient also keeps complaining of skin itching. She reports better sleep and appetite. She is oriented 3, compliant with medications, no significant side effects. Review of Systems Psychiatric: COMPLAINS OF: Depression, Suicidal Ideation Except as stated in HPI: all other systems reviewed are Neg Mental Status Examination Appearance: Dirty, Disheveled Consciousness: Alert Orientation: x4 Motor Activity: Normal gait Speech: Unremarkable Language: Adequate Fund of Knowledge: Adequate Attention and Concentration: Adequate Memory: Unremarkable Mood: Sad Affect: Sad Thought Process & Associations: Other (Some poverty of thought) Thought Content: Appropriate Hallucination Type: Auditory (command) Delusion Type: None Suicidal Ideation: Yes (Denies today) Suicidal Plan: No Suicidal Intention: No Homicidal Ideation: No Homicidal Plan: No Homicidal Intention: No Insight: Poor Judgment: Poor Results Vitals/IOs Vital Signs Date Time Temp Pulse Resp B/P (MAP) Pulse Ox O2 Delivery O2 Flow Rate FiO2 11/26/17 05:56 98.4 88 18 111/59 (76) 98 11/22/17 13:36 Room Air Intake and Output 11/26/17 11/26/17 11/27/17 08:00 16:00 00:00 Intake Total 220 ml Balance 220 ml Assessment & Plan Problem List: (1) Major depressive disorder, single episode ICD Codes: F32.9 - Major depressive disorder, single episode, unspecified Assessment & Plan: Patient continues to endorse symptomatology of depression and SI. I increased her antidepressant yesterday. Brief supportive psychotherapy provided. Will order Benadryl 50 mg by mouth stat for itching. Assessment & Plan Estimated LOS: days Justification for Cont. Inpt. Patient needs to continue psychiatric hospitalization for stabilization and safety. Problem Qualifiers (1) Major depressive disorder, single episode: Nick Murray MD Nov 26, 2017 09:29
[2017-11-26] MEDS ORDERED: HEPAR10KP SQ (10:40)
[2017-11-26] MEDS ORDERED: SULFAMETHOXAZOLE-TRIMETHOPRIM DS 800-160 MG TAB PO ONE (14:30)
--- NOTE | 2017-11-26 14:31 | HHI.PR ---
Subjective Remarks Follow up on patient with type 1 DM, HIV, medication noncompliant, suicidal ideation. Patient seen and examined. Blood sugars running in the 400s. Patient continues to complain of significant itching and is requesting IV Benadryl. States that is the only thing that gives her any relief. She denies any fever or chills. She denies any chest pain or shortness of breath. Denies any nausea, vomiting or abdominal pain. States she does not recall what her last CD4 count was. Reports being off her HIV medications for about 6 months Objective Vitals Vital Signs Date Time Temp Pulse Resp B/P (MAP) Pulse Ox O2 Delivery O2 Flow Rate FiO2 11/26/17 05:56 98.4 88 18 111/59 (76) 98 11/25/17 18:00 99.1 106 16 112/56 (74) 97 I/O 11/25/17 11/25/17 11/25/17 11/26/17 11/26/17 11/26/17 07:00 15:00 23:00 07:00 15:00 23:00 Intake Total 0 ml 480 ml 1620 ml 220 ml Balance 0 ml 480 ml 1620 ml 220 ml Intake Oral 0 ml 480 ml 1620 ml 220 ml # Voids 1 2 2 # Bowel Movements 0 0 Result Diagram: 11/25/17 0711 11/25/17 0711 Objective Remarks GENERAL: This is a well-nourished, well-developed -Ind[place] female patient, in no apparent distress. Awake and alert. Lying in hospital bed. Scratching herself all over. SKIN: Dry scaly skin with HIV related skin discolorations HEAD: Atraumatic. Normocephalic. EYES: EOMI. Right eye conjunctivitis improving. ENT: Nose without bleeding or purulent drainage. Airway patent. MMM. NECK: Trachea midline. CARDIOVASCULAR: Tachycardia without murmurs, gallops, or rubs. RESPIRATORY: Clear to auscultation. Breath sounds equal bilaterally. No wheezes , rales, or rhonchi. GASTROINTESTINAL: Abdomen soft, non-tender, nondistended. No guarding MUSCULOSKELETAL: She denies without any cyanosis or edema. No obvious deformities. NEUROLOGICAL: Awake and alert. Able to move all extremities spontaneously. Motor and sensory grossly within normal limits. Nonfocal. Normal speech. Medications and IVs Current Medications Medications (Trade) Dose Ordered Sig/Millie Route Start Time Stop Time Status Last Admin (Xylocaine 2% Viscous) 15 ml Q4H PRN SWISH-SWAL 11/22/17 09:30 (Tylenol) 650 mg Q4H PRN PO 11/22/17 11:15 (Milk Of Magnesia Liq) 30 ml DAILY PRN PO 11/22/17 11:15 (Mag-Al Plus Susp Liq) 30 ml Q6H PRN PO 11/22/17 11:15 11/26/17 02:15 (Habitrol 21 Mg Patch.24 Hr) 1 patch DAILY T-DERMAL 11/23/17 09:00 Miscellaneous Information 1 DAILY T-DERMAL 11/23/17 09:00 (Duoneb Neb) 1 ampule Q4HR NEB PRN NEB 11/22/17 15:15 (Tylenol) 325 mg Q6H PRN PO 11/22/17 15:30 (Pepcid) 20 mg BID PO 11/22/17 21:00 11/26/17 08:54 (Heparin Inj) 5,000 units Q8HR SQ 11/22/17 22:00 11/23/17 14:00 (Lac-Hydrin 12% Lotion) 1 applic BID TOPICAL 11/23/17 11:15 11/26/17 08:54 (SEROquel) 50 mg BID@09,12 PO 11/24/17 09:00 11/26/17 13:04 (Atarax) 50 mg Q6H PRN PO 11/24/17 17:15 11/26/17 09:33 (NovoLOG SUPPLEMENTAL SCALE) 1 ACHS SLIDING SCALE SQ 11/24/17 17:00 11/26/17 13:05 Non-Formulary Medication NF:CIPROFLOXACIN OPTH MALENA 0.3%--1 D... QID EACH EYE 11/24/17 16:15 12/01/17 17:59 11/26/17 13:05 (D50w (Vial) Inj) 50 ml UNSCH PRN IV PUSH 11/24/17 15:00 (Glucagon Inj) 1 mg UNSCH PRN OTHER 11/24/17 15:00 (Levemir Inj) 15 units DAILY SQ 11/25/17 09:00 Future Hold 11/25/17 08:23 (NovoLOG INJ) 8 units TID SQ 11/25/17 13:00 Future Hold (Levemir Inj) 10 units HS SQ 11/25/17 21:00 Future Hold (Lexapro) 20 mg DAILY PO 11/26/17 09:00 11/26/17 08:54 A/P Assessment and Plan 37-year-old female with a past medical history significant for type 1 diabetes, depression with suicidal ideation and HIV, HAART medication noncompliance who was recently admitted to [facility] in DKA and psychiatry unit for suicidal ideation. Depression Suicidal ideation -Management per psychiatric service Recent DKA Type I DM, poorly controlled Medication noncompliance Hypoglycemic episode -continue on diabetic diet -HgbA1c 12.4 -Continue on Accu-Cheks and insulin sliding scale -brittle diabetic with blood sugars running in the mid 300s. Start Levemir 10u BID. Continue to monitor blood sugars and adjust insulin regimen as indicated. HIV, medication noncompliance -Patient states she was off of her HAART medications for several months before she was recently admitted to [facility] where her HIV meds were resumed. -CD4 count less than 20. Start Bactrim po daily for prophylaxis. Consult ID , appreciate assistance -Continue to hold HAART medications at this time Pruritus -Secondary to above, improved -Continue Atarax 50mg q6h prn. -Topical Lac-Hydrin twice a day -Give one time dose of Benadryl 12.5mg IV Conjunctivitis, improving -Cipro ophthalmic gtts in both eyes QID x 7 days Hyponatremia, improved Sodium from 131 to 135 -Suspect secondary to elevated blood sugars and dehydration. BUN 32 --> 21. -IV fluid bolus given -Improved blood sugar control -continue to encourage po fluid intake RAMO, resolved Creatinine 1.14, GFR 65 -Secondary to dehydration -IVF bolus given -encourage po intake -Avoid nephrotoxins -monitor renal indices Anemia -Suspect chronic, anemia of chronic disease -hemoglobin appears stable -No active bleeding -Continue to monitor as indicated DVT prophylaxis -Patient is ambulatory Ebony Dee Nov 26, 2017 14:31
[2017-11-26] MEDS ORDERED: diphenhydrAMINE HCL 50 MG/ML VIAL IV PUSH ONE (15:45)
[2017-11-26 18:01] VITALS: BP 93/52; PULSE 102; RESP 16; TEMP 97.9; O2SAT 97
[2017-11-26] MEDS: INSULIN DETEMIR 100 UNITS/ML VIAL SQ SCH (20:14)
[2017-11-27] MEDS: HEPARIN SODIUM - SQ 10,000 UNITS/ML VIAL SQ SCH ×3 (05:34→22:00)
[2017-11-27] MEDS: INSULIN ASPART SUPPLEMENTAL SCALE SQ SCH ×4 (08:00→23:06)
[2017-11-27] MEDS ORDERED: SULFAMETHOXAZOLE-TRIMETHOPRIM DS 800-160 MG TAB PO SCH (09:00)
[2017-11-27] MEDS: NICOTINE 21 MG/24 HR PATCH T-DERMAL SCH (09:00)
[2017-11-27] MEDS: REMOVE OLD PATCH T-DERMAL SCH (09:00)
[2017-11-27] MEDS: QUEtiapine FUMARATE 25 MG TAB PO SCH ×2 (09:20→12:43)
[2017-11-27] MEDS: INSULIN DETEMIR 100 UNITS/ML VIAL SQ SCH ×2 (09:20→23:07)
[2017-11-27] MEDS: CIPROFLOXACIN OPTH 0.3% EACH EYE SCH ×4 (09:20→23:08)
[2017-11-27] MEDS: FAMOTIDINE 20 MG TAB PO SCH ×2 (09:20→23:04)
[2017-11-27] MEDS: ESCITALOPRAM OXALATE 10 MG TAB PO SCH (09:20)
[2017-11-27] MEDS: LACTIC ACID (AMMONIUM LACTATE) 12% LOTION 225 GM BTL TOPICAL SCH ×2 (09:20→21:00)
[2017-11-27] MEDS: INSULIN ASPART 1,000 UNITS/10 ML VIAL SQ SCH ×2 (12:42→17:27)
--- NOTE | 2017-11-27 13:34 | HHI.PYPN ---
Subjective Chief Complaint: Major depressive disorder Remarks Reviewed electronic medical record, labs, and discussed case with staff. Follow -up evaluation done in patient's room with the nurse present. Patient lying in bed awake, alert, oriented. Patient's appearance disheveled. Her speech is clear, logical, and organized. When asked how she feels today patient reports "like I want to kill myself". Advised by staff infectious disease will be following up with patient today. She states that she slept okay and that her appetite has been "better". She denies homicidal ideation, auditory and visual hallucinations. She reports her mood as depressed and her affect is somewhat flat. Mental Status Examination Appearance: Dirty, Disheveled Consciousness: Alert Orientation: x4 Motor Activity: Normal gait, Other (Lying in bed) Speech: Unremarkable Language: Adequate Fund of Knowledge: Adequate Attention and Concentration: Adequate Memory: Unremarkable Mood: Sad Affect: Sad, Flat Thought Process & Associations: Other (Some poverty of thought) Thought Content: Appropriate Hallucination Type: Auditory (command) Delusion Type: None Suicidal Ideation: Yes (Reports that she feels "like I want to kill myself".) Suicidal Plan: No Suicidal Intention: No Homicidal Ideation: No Homicidal Plan: No Homicidal Intention: No Insight: Poor Judgment: Poor Results Labs Test 11/26/17 21:53 Random Glucose 352 MG/DL Vitals/IOs Vital Signs Date Time Temp Pulse Resp B/P (MAP) Pulse Ox O2 Delivery O2 Flow Rate FiO2 11/26/17 18:01 97.9 102 16 93/52 (66) 97 Intake and Output 11/27/17 11/27/17 11/28/17 08:00 16:00 00:00 Intake Total 240 ml 840 ml Balance 240 ml 840 ml Assessment & Plan Problem List: (1) Major depressive disorder, single episode ICD Codes: F32.9 - Major depressive disorder, single episode, unspecified Assessment & Plan Estimated LOS: We will continue with treatment plan until patient is psychiatrically stable. Justification for Cont. Inpt. Meeting this patient to a lower level of care would likely result in decompensation at this time. Problem Qualifiers (1) Major depressive disorder, single episode: Jordana Ramos Nov 27, 2017 13:34
--- NOTE | 2017-11-27 14:20 | HHI.PR ---
Subjective Remarks Follow up on patient with type 1 DM, HIV, medication noncompliant, suicidal ideation. Patient seen and examined. Patient reports persistent itching. She is requesting IV Benadryl. She states she wants to kill herself. She denies any fever or chills. She denies any chest pain or dyspnea. She denies any nausea, vomiting or abdominal pain. Her blood sugars continue to have erratic swings. Objective Vitals Vital Signs Date Time Temp Pulse Resp B/P (MAP) Pulse Ox O2 Delivery O2 Flow Rate FiO2 11/26/17 18:01 97.9 102 16 93/52 (66) 97 I/O 11/26/17 11/26/17 11/26/17 11/27/17 11/27/17 11/27/17 07:00 15:00 23:00 07:00 15:00 23:00 Intake Total 220 ml 480 ml 720 ml 240 ml 840 ml Balance 220 ml 480 ml 720 ml 240 ml 840 ml Intake Oral 220 ml 480 ml 720 ml 240 ml 840 ml # Voids 2 2 2 1 # Bowel Movements 0 Result Diagram: 11/25/17 0711 11/26/172152 Objective Remarks GENERAL: This is a well-nourished, well-developed -[place] female patient, in no apparent distress. Awake and alert. Lying in hospital bed. Scratching herself. SKIN: Dry scaly skin with HIV related skin discolorations HEAD: Atraumatic. Normocephalic. EYES: EOMI. Right eye conjunctivitis nearly resolved. ENT: Nose without bleeding or purulent drainage. Airway patent. MMM. NECK: Trachea midline. CARDIOVASCULAR: Tachycardia without murmurs, gallops, or rubs. RESPIRATORY: Clear to auscultation. Breath sounds equal bilaterally. No wheezes , rales, or rhonchi. GASTROINTESTINAL: Abdomen soft, non-tender, nondistended. No guarding MUSCULOSKELETAL: She denies without any cyanosis or edema. No obvious deformities. NEUROLOGICAL: Awake and alert. Able to move all extremities spontaneously. Motor and sensory grossly within normal limits. Nonfocal. Normal speech. Medications and IVs Current Medications Medications (Trade) Dose Ordered Sig/Millie Route Start Time Stop Time Status Last Admin (Xylocaine 2% Viscous) 15 ml Q4H PRN SWISH-SWAL 11/22/17 09:30 (Tylenol) 650 mg Q4H PRN PO 11/22/17 11:15 (Milk Of Magnesia Liq) 30 ml DAILY PRN PO 11/22/17 11:15 (Mag-Al Plus Susp Liq) 30 ml Q6H PRN PO 11/22/17 11:15 11/26/17 20:13 (Habitrol 21 Mg Patch.24 Hr) 1 patch DAILY T-DERMAL 11/23/17 09:00 Miscellaneous Information 1 DAILY T-DERMAL 11/23/17 09:00 (Duoneb Neb) 1 ampule Q4HR NEB PRN NEB 11/22/17 15:15 (Tylenol) 325 mg Q6H PRN PO 11/22/17 15:30 (Pepcid) 20 mg BID PO 11/22/17 21:00 11/27/17 09:20 (Heparin Inj) 5,000 units Q8HR SQ 11/22/17 22:00 11/23/17 14:00 (Lac-Hydrin 12% Lotion) 1 applic BID TOPICAL 11/23/17 11:15 11/27/17 09:20 (SEROquel) 50 mg BID@09,12 PO 11/24/17 09:00 11/27/17 12:43 (Atarax) 50 mg Q6H PRN PO 11/24/17 17:15 11/26/17 20:27 (NovoLOG SUPPLEMENTAL SCALE) 1 ACHS SLIDING SCALE SQ 11/24/17 17:00 11/27/17 11:59 Non-Formulary Medication NF:CIPROFLOXACIN OPTH MALENA 0.3%--1 D... QID EACH EYE 11/24/17 16:15 12/01/17 17:59 11/27/17 12:43 (D50w (Vial) Inj) 50 ml UNSCH PRN IV PUSH 11/24/17 15:00 (Glucagon Inj) 1 mg UNSCH PRN OTHER 11/24/17 15:00 (Lexapro) 20 mg DAILY PO 11/26/17 09:00 11/27/17 09:20 (Bactrim Ds 800-160 Mg) 1 tab DAILY PO 11/27/17 09:00 11/27/17 09:20 (NovoLOG INJ) 4 units TID SQ 3/5/18 13:00 11/27/17 12:42 (Levemir Inj) 7 units Q12HR SQ 11/27/17 21:00 A/P Assessment and Plan 37-year-old female with a past medical history significant for type 1 diabetes, depression with suicidal ideation and HIV, HAART medication noncompliance who was recently admitted to [facility] in DKA and psychiatry unit for suicidal ideation. Depression Suicidal ideation -Management per psychiatric service Recent DKA Type I DM, poorly controlled Medication noncompliance Hypoglycemic episode -continue on diabetic diet -HgbA1c 12.4 -Continue on Accu-Cheks and insulin sliding scale -brittle diabetic. Started on Levemir 10u BID. Blood sugars ranging from 134 to 568. Changed to Levemir 7u BID and begin preprandial Novolog 4u TID. -will continue to monitor BS and adjust treatment accordingly HIV, medication noncompliance -Patient states she was off of her HAART medications for several months before she was recently admitted to [facility] where her HIV meds were resumed. -CD4 count less than 20. Start Bactrim DS 800/160mg MWF and Azithromycin 1200mg po q 7 days -Continue to hold HAART medications at this time -Patient will need to follow up with her ID physician following discharge Pruritus -Secondary to above, improved -Continue Atarax 50mg q6h prn. -Topical Lac-Hydrin twice a day -Given one time dose of Benadryl 12.5mg IV Conjunctivitis, improving -Cipro ophthalmic gtts in both eyes QID x 7 days Hyponatremia, improved Sodium from 131 to 135 -Suspect secondary to elevated blood sugars and dehydration. BUN 32 --> 21. -IV fluid bolus given -Improved blood sugar control -continue to encourage po fluid intake RAMO, resolved Creatinine 1.14, GFR 65 -Secondary to dehydration -IVF bolus given -encourage po intake -Avoid nephrotoxins -monitor renal indices as indicated Anemia -Suspect chronic, anemia of chronic disease -hemoglobin appears stable -No active bleeding -Continue to monitor as indicated DVT prophylaxis -Patient is ambulatory Ebony Dee Nov 27, 2017 14:20
[2017-11-27] MEDS: AZITHROMYCIN 600 MG TAB PO SCH ×2 (17:00→18:13)
[2017-11-27] MEDS: hydrOXYzine HCL 25 MG TAB PO PRN (17:37)
[2017-11-27 18:09] VITALS: BP 112/71; PULSE 100; RESP 18; TEMP 97.7; O2SAT 100
[2017-11-28] MEDS: hydrOXYzine HCL 25 MG TAB PO PRN ×2 (02:22→12:46)
[2017-11-28 06:00] VITALS: RESP 16; TEMP 97.5; O2SAT 94
[2017-11-28] MEDS: HEPARIN SODIUM - SQ 10,000 UNITS/ML VIAL SQ SCH ×2 (06:00→14:00)
[2017-11-28] MEDS: INSULIN ASPART SUPPLEMENTAL SCALE SQ SCH ×2 (07:53→11:39)
[2017-11-28] MEDS: INSULIN DETEMIR 100 UNITS/ML VIAL SQ SCH (09:00)
[2017-11-28] MEDS: LACTIC ACID (AMMONIUM LACTATE) 12% LOTION 225 GM BTL TOPICAL SCH (09:00)
[2017-11-28] MEDS: REMOVE OLD PATCH T-DERMAL SCH (09:00)
[2017-11-28] MEDS: NICOTINE 21 MG/24 HR PATCH T-DERMAL SCH ×2 (09:00→09:51)
[2017-11-28] MEDS: CIPROFLOXACIN OPTH 0.3% EACH EYE SCH ×4 (09:00→16:51)
--- NOTE | 2017-11-28 09:08 | HHI.PR ---
Subjective Remarks Follow up on patient with type 1 DM, HIV, medication noncompliant, suicidal ideation. Patient seen and examined. Patient denies any new medical complaints. Continues to complain of itching. Blood sugars much better controlled. Objective Vitals Vital Signs Date Time Temp Pulse Resp B/P (MAP) Pulse Ox O2 Delivery O2 Flow Rate FiO2 11/28/17 06:00 97.5 16 94 11/27/17 18:09 97.7 100 18 112/71 (85) 100 I/O 11/27/17 11/27/17 11/27/17 11/28/17 11/28/17 11/28/17 07:00 15:00 23:00 07:00 15:00 23:00 Intake Total 240 ml 840 ml 1440 ml 240 ml 480 ml Balance 240 ml 840 ml 1440 ml 240 ml 480 ml Intake Oral 240 ml 840 ml 1440 ml 240 ml 480 ml # Voids 1 3 2 Result Diagram: 11/25/17 0711 11/26/17 8848 Objective Remarks GENERAL: This is a well-nourished, well-developed -Swazi female patient, in no apparent distress. Awake and alert. Lying in hospital bed. Pleasant and cooperative. SKIN: Dry scaly skin with HIV related skin discolorations HEAD: Atraumatic. Normocephalic. EYES: EOMI. Right eye conjunctivitis nearly resolved. ENT: Nose without bleeding or purulent drainage. Airway patent. MMM. NECK: Trachea midline. CARDIOVASCULAR: Tachycardia without murmurs, gallops, or rubs. RESPIRATORY: Clear to auscultation. Breath sounds equal bilaterally. No wheezes , rales, or rhonchi. GASTROINTESTINAL: Abdomen soft, non-tender, nondistended. No guarding MUSCULOSKELETAL: She denies without any cyanosis or edema. No obvious deformities. NEUROLOGICAL: Awake and alert. Able to move all extremities spontaneously. Motor and sensory grossly within normal limits. Nonfocal. Normal speech. Medications and IVs Current Medications Medications (Trade) Dose Ordered Sig/Millie Route Start Time Stop Time Status Last Admin (Xylocaine 2% Viscous) 15 ml Q4H PRN SWISH-SWAL 11/22/17 09:30 (Tylenol) 650 mg Q4H PRN PO 11/22/17 11:15 (Milk Of Magnesia Liq) 30 ml DAILY PRN PO 11/22/17 11:15 (Mag-Al Plus Susp Liq) 30 ml Q6H PRN PO 11/22/17 11:15 11/26/17 20:13 (Habitrol 21 Mg Patch.24 Hr) 1 patch DAILY T-DERMAL 11/23/17 09:00 Miscellaneous Information 1 DAILY T-DERMAL 11/23/17 09:00 (Duoneb Neb) 1 ampule Q4HR NEB PRN NEB 11/22/17 15:15 (Tylenol) 325 mg Q6H PRN PO 11/22/17 15:30 (Pepcid) 20 mg BID PO 11/22/17 21:00 11/27/17 23:04 (Heparin Inj) 5,000 units Q8HR SQ 11/22/17 22:00 11/23/17 14:00 (Lac-Hydrin 12% Lotion) 1 applic BID TOPICAL 11/23/17 11:15 11/27/17 09:20 (SEROquel) 50 mg BID@09,12 PO 11/24/17 09:00 11/27/17 12:43 (Atarax) 50 mg Q6H PRN PO 11/24/17 17:15 11/28/17 02:22 (NovoLOG SUPPLEMENTAL SCALE) 1 ACHS SLIDING SCALE SQ 11/24/17 17:00 11/28/17 07:53 Non-Formulary Medication NF:CIPROFLOXACIN OPTH MALENA 0.3%--1 D... QID EACH EYE 11/24/17 16:15 12/01/17 17:59 11/27/17 23:08 (D50w (Vial) Inj) 50 ml UNSCH PRN IV PUSH 11/24/17 15:00 (Glucagon Inj) 1 mg UNSCH PRN OTHER 11/24/17 15:00 (Lexapro) 20 mg DAILY PO 11/26/17 09:00 11/27/17 09:20 (NovoLOG INJ) 4 units TID SQ 11/27/17 13:00 11/27/17 17:27 (Levemir Inj) 7 units Q12HR SQ 11/27/17 21:00 11/27/17 23:07 (Bactrim Ds 800-160 Mg) 1 tab MoWeFr PO 11/29/17 09:00 (Zithromax) 1,200 mg Q7D PO 11/27/17 17:00 11/27/17 18:13 A/P Assessment and Plan 37-year-old female with a past medical history significant for type 1 diabetes, depression with suicidal ideation and HIV, HAART medication noncompliance who was recently admitted to [facility] in DKA and psychiatry unit for suicidal ideation. Depression Suicidal ideation -Management per psychiatric service Recent DKA Type I DM, poorly controlled Medication noncompliance Hypoglycemic episode -continue on diabetic diet -HgbA1c 12.4 -Continue on Accu-Cheks and insulin sliding scale -brittle diabetic. Blood sugars much better controlled with current regimen. Continue Levemir 10u BID and preprandial Novolog 4u TID. -will continue to monitor BS and adjust treatment accordingly HIV, medication noncompliance -Patient states she was off of her HAART medications for several months before she was recently admitted to [facility] where her HIV meds were resumed. -CD4 count less than 20. Started on Bactrim DS 800/160mg MWF and Azithromycin 1200mg po q 7 days, continue. -Continue to hold HAART medications at this time -Patient will need to follow up with her ID physician following discharge Pruritus -Secondary to above, improved -Continue Atarax 50mg q6h prn. -Topical Lac-Hydrin twice a day Conjunctivitis, improving -Cipro ophthalmic gtts in both eyes QID x 7 days Hyponatremia, improved Sodium from 131 to 135 -Suspect secondary to elevated blood sugars and dehydration. BUN 32 --> 21. -IV fluid bolus given -Improved blood sugar control -continue to encourage po fluid intake RAMO, resolved Creatinine 1.14, GFR 65 -Secondary to dehydration -IVF bolus given -encourage po intake -Avoid nephrotoxins -monitor renal indices as indicated Anemia -Suspect chronic, anemia of chronic disease -hemoglobin appears stable -No active bleeding -Continue to monitor as indicated DVT prophylaxis -Patient is ambulatory Ebony Dee Nov 28, 2017 09:08
[2017-11-28] MEDS: FAMOTIDINE 20 MG TAB PO SCH (09:50)
[2017-11-28] MEDS: ESCITALOPRAM OXALATE 10 MG TAB PO SCH (09:50)
[2017-11-28] MEDS: QUEtiapine FUMARATE 25 MG TAB PO SCH ×2 (09:50→11:38)
[2017-11-28] MEDS: INSULIN ASPART 1,000 UNITS/10 ML VIAL SQ SCH ×2 (09:51→12:47)
--- NOTE | 2017-11-28 12:03 | HHI.PYPN ---
Subjective Chief Complaint: Major depressive disorder Remarks Reviewed EMR, labs, discussed patient with staff. Nurse reports that patient has been irritable and requesting inappropriate snacks given her brittle diabetes. Follow-up evaluation conducted in patient's room with nurse present. Patient states that she slept "ok" and has a good appetite. She states that she feels like "choking myself, I just want to be ". She denies homicidal ideation, auditory or visual hallucinations. Mental Status Examination Appearance: Disheveled Consciousness: Alert Orientation: x4 Motor Activity: Normal gait, Other (Lying in bed) Speech: Unremarkable Language: Adequate Fund of Knowledge: Adequate Attention and Concentration: Adequate Memory: Unremarkable Mood: Sad Affect: Sad, Flat Thought Process & Associations: Other (Some poverty of thought) Thought Content: Appropriate Hallucination Type: Auditory (command) Delusion Type: None Suicidal Ideation: Yes (continues to endorse suicidal ideation) Suicidal Plan: No Suicidal Intention: No Homicidal Ideation: No Homicidal Plan: No Homicidal Intention: No Insight: Poor Judgment: Poor Results Vitals/IOs Vital Signs Date Time Temp Pulse Resp B/P (MAP) Pulse Ox O2 Delivery O2 Flow Rate FiO2 11/28/17 06:00 97.5 16 94 11/27/17 18:09 100 Intake and Output 11/28/17 11/28/17 11/29/17 08:00 16:00 00:00 Intake Total 240 ml 480 ml Balance 240 ml 480 ml Assessment & Plan Problem List: (1) Major depressive disorder, single episode ICD Codes: F32.9 - Major depressive disorder, single episode, unspecified Assessment & Plan Estimated LOS: Patient started on 20 mg Lexapro three days ago, will continue to monitor for therapeutic effect. Justification for Cont. Inpt. Moving patient to a lower level of care would result in decompensation. Problem Qualifiers (1) Major depressive disorder, single episode: Jordana Ramos Nov 28, 2017 12:03
[2017-11-28] MEDS ORDERED: SERO25TA PO (14:25)
[2017-11-28] MEDS ORDERED: ESCI10TA PO (14:25)
[2017-11-28] MEDS ORDERED: LEVEMIR SQ (14:38)
[2017-11-28] MEDS ORDERED: NOVOLOGP2 SQ (14:38)
[2017-11-28] MEDS ORDERED: SULF1TAB23 PO (14:38)
[2017-11-28] MEDS ORDERED: Lactic Acid 12% Lotion TOPICAL (14:38)
[2017-11-28] MEDS ORDERED: AZIT600T PO (14:38)
[2017-11-28] MEDS ORDERED: CIPR0.3S2 EACH EYE (14:38)
--- NOTE | 2017-11-28 14:46 | HHI.DS ---
Psychiatry Discharge Summary Inpatient Psychiatric care?: Yes Advance Directive: No Mental Health AdvanceDirective: No Health Care Proxy: No Admission Admission Date Nov 22, 2017 at 11:14 Admission Diagnosis: (1) Major depressive disorder, single episode ICD Code: F32.9 - Major depressive disorder, single episode, unspecified Brief History The patient is a 37-year-old woman, domicile in [place] with her mother, mother of 2 kids, unemployed, supported by [facility], with unclear psychiatric history, she says that she has been diagnosed with psychosis in the past, no previous psychiatric hospitalizations, 2 previous suicide attempts, self cutting behavior, she has been in [place] in the past, denies the use of illegal drugs and alcohol, medical history of HIV and diabetes, who presents to the emergency department for psychiatric evaluation under a [place] act. Patient was apparently transferred from [facility]. Apparently patient has auditory hallucinations that command her to commit suicide. Chart was reviewed. Case discussed with ER staff. On psychiatric evaluation the patient is poorly cooperative, very tearful, with marked psychomotor retardation, with poor eye contact, staring to the floor. Her speech is hesitant, answers selectively to my questions, she does report that she has been very depressed, that she has lost the reason to live and she has been hearing voices telling her to kill herself. She says that she has been having difficulties coping with her HIV and diabetes to the point that she has stopped taking her medications and she doesn't care anymore. The patient is fully oriented 3, she doesn't have any fluctuation of consciousness, no attention deficit. Even though she has fragmented thought processes, she is logical coherent and relevant, no agitation, no aggressive behavior, no loosening of associations, no tangentiality present. She denies the use of illegal drugs and alcohol. Tobacco Use In Past 30 Days: 5 or More Cigarettes/Day Alcohol Use: Never Hospital Course Patient was placed in a locked medical/psychiatric inpatient unit for treatment. Proper safety precautions were maintained throughout her stay. Patient has complied with medications during her stay. During today's visit: She continued to claim vague intermittent thoughts of self harm, however she also states that she does not feel compelled to act upon them, and initially denied having them at all. Staff report that patient has had no behaviors. She maintains that she does not intend to comply with suggested diet and self-care after discharge. Her speech is clear, logical, and organized. Her affect is euthymic and her mood is appropriate. Patient has reached the maximum benefit of treatment this visit, and no longer meets inpatient criteria. I do not believe she is an imminent danger to herself or others. Patient will be discharged with outpatient resources, prescriptions, and transportation to her home, with her mother. She is encouraged to establish outpatient treatment, comply with medication regimen, and seek help if her condition worsens. Results Blood Pressure 112 / 71 Vital Signs Date Time Temp Pulse Resp B/P (MAP) Pulse Ox O2 Delivery O2 Flow Rate FiO2 11/28/17 06:00 97.5 16 94 11/27/17 18:09 100 Laboratory Tests Test 11/26/17 21:53 Random Glucose 352 MG/DL (74-106) Laboratory Results Test 11/23/17 07:35 Cholesterol Level 147 MG/DL (120-200) HDL Cholesterol 99.0 MG/DL (40.0-60.0) Hemoglobin A1c 12.4 % (4.3-6.0) LDL Cholesterol 38 MG/DL (0-99) Triglycerides Level 48 MG/DL (42-150) Summary of Procedures none Pending results at discharge: No Medications # of Antipsychotic meds at D/C: 1 Approp Antipsych med options 1 - Minimum of three failed multiple trials of monotherapy. 2 - Documented plan to taper to monotherapy due to previous use of multiple meds OR cross-taper in progress at D/C. 3 - Documentation of augmentation of Clozapine. 4 - Justification other than those listed in allowable values 1-3, document here : Discharge Discharge Date: Nov 28, 2017 Discharge Diagnosis: (1) Major depressive disorder, single episode ICD Code: F32.9 - Major depressive disorder, single episode, unspecified Pt Condition on Discharge: Stable Discharge Disposition: Discharge Home Discharge Instructions Diet Instructions: Diabetic Diet Activities you can perform: Regular-No Restrictions Discharge Time <= 30 minutes Mental Status Examination Appearance: Disheveled Consciousness: Alert Orientation: x4 Motor Activity: Normal gait, Other (Lying in bed) Speech: Unremarkable Language: Adequate Fund of Knowledge: Adequate Attention and Concentration: Adequate Memory: Unremarkable Mood: Sad Affect: Sad, Flat Thought Process & Associations: Other (Some poverty of thought) Thought Content: Appropriate Hallucination Type: Auditory (command) Delusion Type: None Suicidal Ideation: Yes (continues to endorse suicidal ideation) Suicidal Plan: No Suicidal Intention: No Homicidal Ideation: No Homicidal Plan: No Homicidal Intention: No Insight: Poor Judgment: Poor Discharge/Advance Care Plan Health Problems: (1) Major depressive disorder, single episode Goals to promote your health * To prevent worsening of your condition and complications * To maintain your health at the optimal level Directions to meet your goals Take your medications as prescribed Follow your dietary instruction Follow activity as directed Keep your appointments as scheduled Take your immunizations and boosters as scheduled If your symptoms worsen call your PCP, if no PCP go to Urgent Care Center or Emergency Room For 17/04 questions related to your inpatient stay or results of tests pending at discharge, please contact Dr. Jordana Ramos at Smoking is Dangerous to Your Health. Avoid second hand smoking Problem Qualifiers (1) Major depressive disorder, single episode: Jordana Ramos Nov 28, 2017 14:46
[2017-11-29] MEDS ORDERED: SULFAMETHOXAZOLE-TRIMETHOPRIM DS 800-160 MG TAB PO SCH (09:00)
== END 2017-11-28 16:55 | disposition home or self-care (01) | DRG 885 ==
LOC: NEPJ 17:54 → NEDA 11-22 11:14 → H4EA 11-22 16:58
PROVIDERS: ADMIT Student in an Organized Health Care Education/Training Program; ATTEND Student in an Organized Health Care Education/Training Program
DX: F32.3 Major depressive disorder, single episode, severe with psychotic features (principal); N17.9 Acute kidney failure, unspecified; E46 Unspecified protein-calorie malnutrition; B20 Human immunodeficiency virus [HIV] disease; R45.851 Suicidal ideations; E87.1 Hypo-osmolality and hyponatremia; D70.9 Neutropenia, unspecified; J45.909 Unspecified asthma, uncomplicated; E10.649 Type 1 diabetes mellitus with hypoglycemia without coma; L29.9 Pruritus, unspecified; E86.0 Dehydration; D63.8 Anemia in other chronic diseases classified elsewhere; H10.9 Unspecified conjunctivitis; Z68.20 Body mass index [BMI] 20.0-20.9, adult; Z72.0 Tobacco use; Z79.4 Long term (current) use of insulin; Z83.3 Family history of diabetes mellitus; Z85.41 Personal history of malignant neoplasm of cervix uteri; Z91.14 Patient's other noncompliance with medication regimen
CPT/HCPCS: 76937; 80048; 80053; 80061; 82947; 82948; 83036; 84443; 85025; 86355; 86357; 86359; 86360; 93005; 96361; 96372; 96374; 96375; J1200; J1644; J1815; J7030; Q0163